=== PATIENT | female | born 1990 | race Caucasian/White ===

== ENCOUNTER 2022-11-23 14:25 | Emergency (ER) | payer OTHER, SELFPAY ==
[2022-11-23 14:53] VITALS: BP 110/79; PULSE 104; RESP 18; TEMP 37.2; O2SAT 99
--- NOTE | 2022-11-23 16:06 | ED.NAVMDI ---
HPI - Nausea/Vomiting/Diarrhea General Time Seen by Provider: 16:06 Date Seen: 11/23/22 Chief complaint: Diarrhea Stated complaint: Blood in stool since 929, Abdominal pain, Nausea Time Seen by Provider: 11/23/22 16:06 Source: patient and RN notes reviewed Mode of arrival: ambulatory Limitations: no limitations History of Present Illness HPI Narrative: Kidney is a very pleasant 31-year-old female with a history of IBS and anxiety/bipolar disorder who comes to the emergency room after experiencing bloody stools and abdominal pain. Patient notes that this has happened to her in the past and she had a colonoscopy in January of 2022 that was normal. She was then diagnosed with IBS/D but states that she has intermittent periods of diarrhea and constipation. She states that she and her mother were going to be traveling this morning and actually arrived at the train station when she felt the need to have a bowel movement. Her initial bowel movement was small but normal but then she started having discomfort in her left upper abdomen and subsequently multiple bloody bowel movements. All very loose stool. She has felt chilled but has not had any fever. She notes nausea but no vomiting. She has had blood in her stool in the past but none recently. She does not take any medications except for Effexor and she has not had a recent illness. Patient denies recent travel, recent antibiotic use or ingestion of uncooked meats. She states that she has requested a referral to GI for ongoing issues with her primary at the [facility]. Movement does not really increase her discomfort. She has not taken anything for discomfort. She is currently menstruating. She states her other medical issue is endometriosis. Associated nausea: Yes Related Data Home Medications Medication Instructions Recorded Confirmed cholecalciferol (vitamin D3) 50 50 mcg PO DAILY 11/23/22 11/23/22 mcg (2,000 unit) tablet (D3 DOTS) cyanocobalamin (B12)-cobamamide diana sublingual 11/23/22 5,000 mcg-100 mcg sublingual lozenge (B12) venlafaxine 37.5 mg 37.5 mg PO DAILY 11/23/22 11/23/22 capsule,extended release 24 hr Allergies Allergy/AdvReac Type Severity Reaction Status Date / Time ciprofloxacin [From Cipro] Allergy Mild Shoulder Verified 11/23/22 17:40 Pain Review of Systems Status of ROS: Reports: 10 or more systems reviewed and unremarkable except as noted in History and below Const: Reports: chills; Denies: fever Eyes: Denies: change in vision ENMT: Denies: throat pain, throat swelling or difficulty swallowing Cardio: Denies: chest pain or shortness of breath with exertion Resp: Denies: shortness of breath or cough GI: Reports: abdominal pain, nausea, diarrhea and blood in stool; Denies: vomiting or difficulty swallowing : Denies: painful urination Musculo: Denies: back pain Integ/Breast: Denies: rash Neuro: Denies: numbness in extremities Allergy/Immuno: Denies: throat swelling PFSH PFSH Social History Smoking Status: Never smoker Do you use any of these nicotine containing products: None Second hand tobacco smoke exposure: No How often do you have a drink containing alcohol: never How often do you have six or more drinks on one occasion: Never AUDIT-C Alcohol total score: 0 Non-prescribed substance use: denies use service: No Exam Narrative: Exam Narrative: Patient is alert and oriented. Very talkative and articulate. Eyes are clear as is oral cavity. Neck is supple. Heart with regular rate and rhythm. Lungs are clear in all lung delacruz. Abdomen shows tenderness at the left splenic flexure. No bulging. Abdomen is soft. No rebound tenderness. Lower extremities without edema. Const: Vital Signs, click to edit/add: Vital Signs - 24 hr 11/23/22 14:53 Temperature 99 F Pulse Rate [Right Pulse Oximeter] 104 H Respiratory Rate 18 Blood Pressure [Ri ght Upper Arm] 110/79 Pulse Oximetry 99 Oxygen Delivery Me thod Room Air Documenting provider has reviewed patient's vital signs: yes Course Course Hospital Course: At this time patient describes previous episodes of blood in stool that would normally resolved after 1-1-1/2 days. This time however her abdominal pain is much worse and while not vomiting she is very nauseated. An IV will be placed with labs to be drawn including a CBC, comprehensive panel, CRP, abdominal CT. Will also give patient 1 L normal saline, Toradol 15 mg IV, Zofran 4 mg IV. Vital Signs Vital signs: Initial Vital Signs Temperature 99 F 11/23/22 14:53 Temperature Source Temporal Artery Scan 11/23/22 14:53 Pulse Rate 104 H 11/23/22 14:53 Pulse Rhythm 11/23/22 14:53 Pulse Strength 3+ Normal 11/23/22 14:53 Respiratory Rate 18 11/23/22 14:53 Blood Pressure 110/79 11/23/22 14:53 Blood Pressure Mean 89 11/23/22 14:53 Blood Pressure Position Sitting 11/23/22 14:53 Pulse Oximetry 99 11/23/22 14:53 Oxygen Delivery Method 11/23/22 14:53 Vital Signs Temperature 99 F 11/23/22 14:53 Pulse Rate 104 H 11/23/22 14:53 Respiratory Rate 18 11/23/22 14:53 Blood Pressure 110/79 11/23/22 14:53 Pulse Oximetry 99 11/23/22 14:53 Oxygen Delivery Method 11/23/22 14:53 Temperature 99 F 11/23/22 14:53 Pulse Rate 104 H 11/23/22 14:53 Respiratory Rate 18 11/23/22 14:53 Blood Pressure 110/79 11/23/22 14:53 Pulse Oximetry 99 11/23/22 14:53 Oxygen Delivery Method 11/23/22 14:53 MDM - Nausea/Vomiting/Diarrhea MDM Narrative Medical decision making narrative: 1. Colitis-suspect Crohn's disease. Unfortunately patient CT does show thickened bowel wall and thickening of the terminal ileum a pattern suspicious for Crohn's. At this time I do speak with surgical technologist Dr. Deleon. It is suggested that we start patient on steroids which will be 40 mg prednisone daily for 7 days. Following this will also place patient on antibiotic. Cipro is the drug of choice in this situation but patient states that she has had shoulder pain in the past. She has never experienced any ankle pain. However, up-to-date does describe Zithromax given 500 mg for 3 days as an appropriate alternative. 2. Abdominal pain-patient will receive Toradol here in the emergency room. She may have additional dose of ibuprofen at home but thereafter will use Tylenol as she will also be on prednisone. No history of gastritis or upper GI bleed in the past. Did offer patient stronger medication such as a narcotic but she is adamant that she would not want to take that. Ironically without having been given Toradol she is actually feeling better after her CT. Nursing had been pulled away for another patient and therefore kidney did not receive the medications that had been ordered. She is receiving those now along with a dose of Zofran 4 mg IV. 3. Disposition-patient will be discharged home. She is to follow up with her primary in order to have a referral to Dr. Stevens. In addition, Dr. Deleon will speak with him this week so we have for further direction on treatments and follow-up. Dr. Deleon notes that she would be able to fit patient in for colonoscopy per Dr. Stevens's approval. If patient has worsening symptoms such as the onset of high fever, vomiting, increasing abdominal pain she will return to the emergency room. Medical Records Attestation: I reviewed the patient's medical records. Lab Data Attestation: I reviewed the patient's lab results. Labs: Lab Results 11/23/22 11/23/22 Range/Units 17:00 17:00 WBC 14.00 H (4.50-11.00) K/uL RBC 4.39 (4.00-5.20) m/uL Hgb 14.1 (12.0-16.0) gm/dL Hct 40.1 (33.0-51.0) % MCV 91 (80-100) fL MCH 32 (26-34) pg MCHC 35 (32-36) gm/dL RDW Coeff of Ysabel 11.8 (11.5-15.5) % Plt Count 243 (140-440) K/uL Neut % (Auto) 77.5 H (42.0-72.0) % Lymph % (Auto) 15.3 L (20-44) % Wharton % (Auto) 7.0 (0.0-11.0) % Eos % (Auto) 0.0 (0.0-7.0) % Baso % (Auto) 0.1 (0.0-3.0) % Neut # (Auto) 10.90 H (1.7-7.0) K/uL Lymph # (Auto) 2.10 (0.90-2.90) K/uL Wharton # (Auto) 1.00 H (0.00-0.90) K/UL Eos # (Auto) 0.00 (0.00-0.50) K/uL Baso # (Auto) 0.00 (0.00-0.30) K/uL Sodium 140 (135-149) mmol/L Potassium 4.3 (3.6-5.1) mmol/L Chloride 104 (96-114) mmol/L Carbon Dioxide 27 (20-32) mmol/L BUN 9 (5-24) mg/dL Creatinine 0.6 (0.5-1.5) mg/dL Estimated GFR 122 ml/min Glucose 99 (60-115) mg/dL Calcium 9.8 (8.4-10.6) mg/dL Total Bilirubin 1.3 (0.1-1.5) mg/dL AST 21 (12-35) U/L ALT 15 (4-35) U/L Alkaline Phosphatase 68 (40-150) U/L C-Reactive Protein 0.9 (0.5-1.0) mg/dL Total Protein 7.7 (6.0-8.3) g/dL Albumin 4.6 (3.3-5.0) g/dL Imaging Data CT scan - abdomen: Attestation: I have reviewed the pertinent imaging results. My impression: Bowel wall edema noted. Radiologist's impression: Liver: No suspicious focal hepatic lesion. Gallbladder and bile ducts: Unremarkable. Pancreas: Unremarkable. Spleen: Unremarkable. Adrenal glands: Unremarkable. Kidneys: Kidneys enhance symmetrically, without hydronephrosis. Retroperitoneum: No lymphadenopathy. Bowel and mesentery: There is colonic wall edema with mild hyperemia of the pericolonic vasculature involving the transverse, descending, and rectosigmoid colon, distribution of which is similar to prior study in 2019. Ascending colon is normal. Appendix is normal. There is also mild wall thickening/edema of the terminal ileum, with prominence of the associated mesenteric vasculature. No significant ascites. No pneumoperitoneum. Bladder: Unremarkable for degree of distension. Reproductive organs: Lobulated uterus, may reflect presence of uterine fibroids. No abnormal adnexal mass. Pelvic lymph nodes: No lymphadenopathy. Vessels: Unremarkable. Abdominal wall: No acute abdominal wall abnormality. Bones: No suspicious/aggressive focal osseous lesion. IMPRESSION: Colonic wall edema involving the transverse, descending, and rectosigmoid colon, with associated hyperemia of the pericolonic vasculature. Distribution is similar to prior study. Additionally, there is mild wall thickening/edema of the terminal ileum with prominence of the associated mesenteric vasculature. Constellation of findings is compatible with enteritis/colitis, distribution raises concern for Crohn`s disease. Discharge Plan Discharge Prescriptions: No Action venlafaxine 37.5 mg capsule,extended release 24hr 37.5 mg PO DAILY Label Comments: TAKE 1 CAPSULE BY MOUTH EVERY DAY WITH FOOD cholecalciferol (vitamin D3) [D3 DOTS] 50 mcg (2,000 unit) tablet 50 mcg PO DAILY B12 5,000-100 mcg lozenge sublingual Follow Up/Referrals: Krystyna Phipps DO [Primary Care Provider] -
--- NOTE | 2022-11-23 16:42 | CRLHL7_ITS ---
For Patients: As a result of the Century Cures Act, medical imaging exams and procedure reports are released immediately into your electronic medical record. You may view this report before your referring provider. If you have questions, please contact your health care provider. INDICATION: Abdominal pain. Bloody stool. TECHNIQUE: CT abdomen and pelvis acquired with 64 mL Isovue 370 contrast. COMPARISON: CT abdomen/pelvis dated 07/09/2019. FINDINGS: Lower chest: No focal consolidation. Liver: No suspicious focal hepatic lesion. Gallbladder and bile ducts: Unremarkable. Pancreas: Unremarkable. Spleen: Unremarkable. Adrenal glands: Unremarkable. Kidneys: Kidneys enhance symmetrically, without hydronephrosis. Retroperitoneum: No lymphadenopathy. Bowel and mesentery: There is colonic wall edema with mild hyperemia of the pericolonic vasculature involving the transverse, descending, and rectosigmoid colon, distribution of which is similar to prior study in 2019. Ascending colon is normal. Appendix is normal. There is also mild wall thickening/edema of the terminal ileum, with prominence of the associated mesenteric vasculature. No significant ascites. No pneumoperitoneum. Bladder: Unremarkable for degree of distension. Reproductive organs: Lobulated uterus, may reflect presence of uterine fibroids. No abnormal adnexal mass. Pelvic lymph nodes: No lymphadenopathy. Vessels: Unremarkable. Abdominal wall: No acute abdominal wall abnormality. Bones: No suspicious/aggressive focal osseous lesion. IMPRESSION: Colonic wall edema involving the transverse, descending, and rectosigmoid colon, with associated hyperemia of the pericolonic vasculature. Distribution is similar to prior study. Additionally, there is mild wall thickening/edema of the terminal ileum with prominence of the associated mesenteric vasculature. Constellation of findings is compatible with enteritis/colitis, distribution raises concern for Crohn`s disease. Please note that all CT scans at this facility use dose modulation, iterative reconstruction, and/or weight-based dosing when appropriate to reduce radiation dose to as low as reasonably achievable. Dictated by Estefany Potts MD @ 11/23/2022 6:10:27 PM (Electronically Signed)
[2022-11-23 17:18] LABS: Basophils Percent Auto 0.1 % (0.0-3.0); Hematocrit 40.1 % (33.0-51.0); Hemoglobin* 14.1 gm/dL (12.0-16.0); Immature Granulocytes Pct Auto 0.1 %; Lymphocytes Percent Auto 15.3 % (20-44); Mean Corpuscular HGB Conc 35 gm/dL (32-36); Mean Corpuscular Hemoglobin 32 pg (26-34); Mean Corpuscular Volume 91 fL (80-100); Neutrophils Percent Auto 77.5 % (42.0-72.0); Platelet Count* 243 K/uL (140-440); RDW Coefficient of Variation % 11.8 % (11.5-15.5); Red Blood Count 4.39 m/uL (4.00-5.20)
[2022-11-23 17:22] LABS: Slide Review Reflex No
[2022-11-23 17:30] LABS: Albumin* 4.6 g/dL (3.3-5.0); Chloride* 104 mmol/L (96-114); Sodium* 140 mmol/L (135-149)
[2022-11-23 17:31] LABS: Potassium* 4.3 mmol/L (3.6-5.1)
[2022-11-23 17:33] LABS: Alkaline Phosphatase* 68 U/L (40-150); Aspartate Amino Transferase* 21 U/L (12-35); Bilirubin Total* 1.3 mg/dL (0.1-1.5); Carbon Dioxide* 27 mmol/L (20-32); Creatinine* 0.6 mg/dL (0.5-1.5); Estimated Glomerular Filt Rate 122 ml/min
[2022-11-23 17:34] LABS: Alanine Aminotransferase* 15 U/L (4-35); Blood Urea Nitrogen* 9 mg/dL (5-24); Calcium* 9.8 mg/dL (8.4-10.6); Glucose* 99 mg/dL (60-115); Total Protein* 7.7 g/dL (6.0-8.3)
[2022-11-23 17:36] LABS: C Reactive Protein* 0.9 mg/dL (0.5-1.0)
[2022-11-23] MEDS: 0.9 % SODIUM CHLORIDE 1000 ml 1,000 ML IV (19:07)
[2022-11-23] MEDS: KETOROLAC 15 MG/ML inj IVP (19:07)
[2022-11-23] MEDS: ONDANSETRON 2 MG/ML inj 4 MG IVP (19:08)
[2022-11-23 19:39] VITALS: BP 102/68; PULSE 69; RESP 18
--- NOTE | 2022-11-25 13:07 | ED.NURSE ---
received call from patient reporting nausea. Dr garcia rx'd zofran 4m ODT q6 x10 tablets.
== END 2022-11-23 19:40 | disposition home or self-care (01) ==
PROVIDERS: Emergency Provider Family Medicine; PCP Family Medicine
DX: K52.9 Noninfective gastroenteritis and colitis, unspecified (principal)
CPT/HCPCS: 36415; 74177; 80053; 85025; 86140; 87045; 87046; 87427; 96374; 96375; 99284; J1885; J2405; J7030; Q9967

== ENCOUNTER 2023-03-08 14:40 | Outpatient (CLI) | payer OTHER, SELFPAY | END 2023-03-08 14:41 | disposition home or self-care (01) | LOC: NFLDREF 03-12 15:59 | PROVIDERS: PCP Family Medicine; Referring Provider Family Medicine; Visit Provider Obstetrics & Gynecology | DX: N92.0 Excessive and frequent menstruation with regular cycle (principal) | CPT/HCPCS: 84443 ==

== ENCOUNTER 2023-05-31 17:28 | Inpatient (IN) | payer OTHER, SELFPAY ==
[2023-05-30] VITALS (24 sets, daily range): BP systolic 92–110; BP diastolic 47–67; PULSE 71–102; RESP 12–16; TEMP 36.1–37.2; O2SAT 97–100; BMI 21.7
[2023-05-30 08:13] LABS: Ur HCG Qualitative* Negative (Negative)
[2023-05-30 08:23] LABS: Hemoglobin* 13.3 gm/dL (12.0-16.0)
[2023-05-30] MEDS: LACTATED RINGERS 1000 ML 1,000 ML 100 ML IV ×3 (08:28→13:25)
[2023-05-30 08:30] LABS: Creatinine* 0.6 mg/dL (0.5-1.5); Est. Creatinine Clearance* 110.32; Estimated Glomerular Filt Rate 121 ml/min
[2023-05-30] MEDS: CEFAZOLIN 2 GM INJ IVP (09:37)
--- NOTE | 2023-05-30 10:01 | P.NB_ITS ---
Nerve Block Nerve Block Date Seen: 05/30/23 Type of block requested by surgeon for post-operative analgesia: TAP Side: bilateral Time out performed: Yes Verification of patient name: Yes Verification of date of : Yes Site marking: site marked Name of person performing procedure: Tyson Continuous monitoring Was continuous monitoring of O2 sat, B/P, lunchroom monitor, recorded every 15 minutes?: Yes Procedure Checklist: sterile prep, needles and gloves Ultrasound guided. Images saved: Yes Medications given in 5ml increments after negative aspiration: Marcaine %: 0.25 mL: 30 Needle gauge: 20 and Exparel mL: 10 Patient tolerated procedure well: Yes Additional comments: Needle noted adjacent to nerve Block Charges Block Charge (with Pro Fee): TAP Bilateral Use of Ultrasound Machine for Block: Yes- US Guidance/pain block
--- NOTE | 2023-05-30 10:01 | W.ANESCHARGE ---
Anesthesia Charges Start Date/Time Anesthesia Start Date: 05/30/23 Anesthesia Start Time: 09:27 Stop Date/Time Anesthesia Stop Date: 05/30/23 Anesthesia Stop Time: 14:19
--- NOTE | 2023-05-30 12:36 | SUR.OPER ---
This caption writer called the patient's mother (Bre) to give an update on the procedure. Bre acknowledged the update and thanked this caption writer for the call.
--- NOTE | 2023-05-30 14:26 | W.ANESCHARGE ---
Anesthesia Charges Start Date/Time Anesthesia Start Date: 05/30/23 Anesthesia Start Time: 09:27 Stop Date/Time Anesthesia Stop Date: 05/30/23 Anesthesia Stop Time: 14:19
--- NOTE | 2023-05-30 14:32 | P.GYNPRC_ITS ---
Procedure Note Date of procedure: 05/30/23 Pre-op diagnosis: Menorrhagia, dysmenorrhea Post-op diagnosis: other (Menorrhagia, dysmenorrhea, endometriosis with obliterated cul-de-sac, corpus luteum cyst of right ovary) Procedure: Total laparoscopic hysterectomy with bilateral salpingectomy, right ovarian cystectomy, extensive lysis of adhesions, cystoscopy Anesthesia: GETA Complications: None Intraoperative consult by Dr. anthony Wray MD, general surgery, for assistance in mobilization of the rectum away from the vaginal cuff Surgeon: Tatum Gomez MD Certified Adaptive Physical Educator: Mellisa Dominguez Estimated blood loss (mL): 75 IV fluids (mL): 2,200 Pathology: specimen obtained, sent to pathology Condition: stable Disposition: PACU Findings: 1. Upon pelvic exam under anesthesia, the cervix and vagina were normal in appearance. Vagina of small caliber. Uterus was mobile and anteverted, of normal size and texture. There were no palpable adnexal masses. 2. Upon laparoscopy, survey of the upper abdomen revealed a normal appearance to the inferior edge of the liver, gallbladder and stomach. Bowels were grossly normal appearance, as was the appendix. Survey of the pelvis revealed normal appearance to the uterus. There was obliteration of the cul-de-sac with rectum adherent to the posterior vaginal wall near the vaginal cough. There was some filmy adhesions noted between the left tube and ovary. The left round ligament was nodular and thick at this site that it was transected, likely secondary to endometriosis. Right fallopian tube was normal in appearance. The left ovary was normal appearance. Right ovary exhibited a corpus luteum cyst and was adherent to the pelvic sidewall along its proximal portions. The bladder reflection was normal in appearance. 3. Upon cystoscopy, bilateral ureteral jets were noted and there was no noted injury to the bladder mucosa. Procedure Description: Patient was taken to the operating room with IV running. She received cefazolin in preoperative prophylaxis. She was positioned in dorsal lithotomy position with her legs fully supported in Yellofin stirrups. General anesthesia was administered. She was prepped and draped in the usual sterile fashion. Pelvic exam under anesthesia was performed for the above-noted findings. Speculum was inserted. Cervix visualized and grasped along its anterior lip with a single-tooth tenaculum. Cervix was dilated with Hegar dilators to accommodate the VCare uterine manipulator. A small-sized colpotomizer cup was selected. The tip of the uterine manipulator was inserted through the cervix into the uterine cavity and the balloon was inflated. The speculum was removed. The colpotomy cup was advanced, surrounding the cervix, and the proximal occluder was moved up along the shaft of the VCare and fixed in place. Malone catheter was placed. Patient's legs were then placed in neutral position. Attention was turned to patient's abdomen. A 5 mm infraumbilical incision was made with a scalpel and carried down to the underlying layer of fascia with the hemostat. 5 mm camera was placed within the 5 mm Fios Kii trocar, and advanced under direct visualization through the anterior abdominal wall into the peritoneal cavity, while tenting up the anterior abdominal wall. The trocar was removed. The balloon was inflated, holding the port in place. Pneumoperitoneum was achieved. Survey of the abdomen and pelvis revealed the above-noted findings. Three additional port sites were created. The first was in the patient's left lower quadrant, just superomedial to the left ASIS. The second was a hand's breadth superior to and slightly medial to the first. The third was in the patient's right lower quadrant, just superomedial to the right ASIS. An 11 mm incision was made in the left lower quadrant, and a 5 mm incision was made at the other 2 sites, after assuring that large vessels were out of harm's way. A 10 mm Fios Kii port was inserted at the left lower quadrant site, and a 5 mm Fios Kii port at each of the other 2 sites, under direct visualization and without complication. The balloon on each of the ports was inflated, holding each in place. Attention was first turned to the right adnexae. The right ovary was partially adherent to the pelvic sidewall, and the utero-ovarian ligament appeared thickened. This was divided with the Thunderbeat device. The right fallopian tube was divided from the mesosalpinx, proceeding laterally to medially, and the tube was amputated at the right uterine cornua. This is removed through the port site and sent to pathology. The right round ligament was cauterized and transected. Attention was then turned to the left fallopian tube, which was divided from the mesosalpinx, using the Thunderbeat bipolar cautery device, proceeding laterally to medially, and the tube was amputated at the left uterine cornua. The above described filmy adhesions were divided as well. There were areas of the broad ligament that were nodular and thickened adjacent to the left round ligament. This was removed through the port site and sent to pathology. The left round ligament was cauterized and transected with the Thunderbeat device. The utero-ovarian ligament was cauterized and transected. The bladder flap was created on the patient's left side, moving laterally to medially. The left uterine artery was cauterized and transected with the Thunderbeat device. Using the colpotomizer cup as a guide, the peritoneum and underlying stroma was dissected off the anticipated site of colpotomy over the posterior vaginal fornix. Attention was then turned to the right side of the uterus, where the bladder flap was created on the patient's right side, and dissection was carried laterally to medially, meeting the dissection where it had left off from the patient's left side. The right uterine artery was cauterized and transected w ith the Thunderbeat device. The bladder reflection was moved well below the colpotomizer cup anteriorly. Posteriorly, the rectum was advanced along the posterior vaginal wall to a trouble some degree. The right ovary was still partially adherent to the cervix with thickened scar tissue beneath the former location of the right utero- ovarian ligament. The right ovary was grasped and put on traction to expose this area, rupturing a corpus luteum cyst in the process. This was removed and sent to pathology. Hemostasis was achieved with monopolar cautery. Dr. Wray was then called to the room to assist with dissection in the rectovaginal space. Please refer to her note for full detail. In short, the retroperitoneum was opened, delineating the passes of the right ureter. The thickened, nodular right uterosacral ligament was cauterized and transected, allowing the rectum to be moved below the colpotomizer cup posteriorly. The vaginal fornix was then entered anteriorly with the monopolar paddle, using the colpotomizer cup as a guide. This device was moved along the circumference of the colpotomizer cup, until the uterus and cervix were freed from their attachments to the pelvis. The uterus was pulled into the patient's vagina, maintaining the pneumoperitoneum. The vaginal cuff was closed with a series of [id number] sutures of 0 Vicryl. Sutures were placed and tied intraperitoneally. Ports were left in place but all instruments were removed and pneumoperitoneum was released. Patient's legs were placed back in lithotomy position. The uterus was removed from the vagina and was sent to pathology for further analysis. Speculum exam was performed, showing an intact cuff with no obvious active bleeding. The Malone catheter was removed from the bladder, and the cystoscope was assembled with saline inflow, outflow, and light cord in place. The patient was given IV sodium fluorescein prior to the cystoscopy. Cystoscope was advanced through the urethra into the bladder, and survey of the mucosa revealed a normal appearance. The bladder dome was intact. Bilateral ureteral jets were noted. Cystoscope was removed and Malone catheter replaced. Patient's legs were again placed in neutral position. Insufflator was reattached to the port and pneumoperitoneum again achieved. Survey of the pelvis revealed hemostasis. The 11 mm Fios Kii port in the left lower quadrant was removed after balloon on the port was deflated. The Akash-Yadira laparoscopic closure device was inserted through this port. With the help of this device, the fascia was closed with a single suture of 0-Vicryl. Procedure was deemed complete. The balloons of all remaining port sites were deflated, and all ports were removed after pneumoperitoneum was released. The skin of each port site was closed in a subcuticular fashion with 4 0 Monocryl. Surgical glue was applied above this. Patient tolerated procedure well and was taken to recovery area in stable cond ition.
--- NOTE | 2023-05-30 14:33 | PM.GSPRC ---
Operative Note Date of procedure: 05/30/23 Type of Procedure: 1. Intraoperative consult for assistance of mobilization of the rectum from the uterus. Indications: Patient was undergoing hysterectomy. Severe endometriosis was found involving the posterior uterus adjacent to the rectum. I was asked to assist with mobilization of the posterior uterine wall of the rectum. Procedure Description: When the operating room was entered, patient was in the lithotomy position. All laparoscopic ports were already placed. Intra-abdominally uterine dissection was already completed and uterus was retracted towards the anterior abdominal wall. The rectum was identified and anterior peritoneal reflection near the posterior uterine wall was firm to palpation. Peritoneum just to the left of this firmness was incised with Harmonic scalpel. This peritoneal dissection was carried towards the right side of the pelvis. Severe fibrosis and inflammation was noted were the posterior vaginal cough/uterus was adjacent to the rectum. This dissection was done bluntly and with the Harmonic scalpel staying close to the uterus and away from the rectum. On the right side uterine vascular supply was already divided. However, there was remnant of the broad ligament or inflammatory tissue that was attached to the uterus. It was difficult to tell if the right ureter was pulled into this firm inflammatory tissue. We elected to trace the entire course of the right ureter into the pelvis. The right ureter was identified near the pelvic brim on the right side. Peritoneum slightly anterior to the right ureter was incised with the Harmonic scalpel. The peritoneum overlying the right ureter was then dissected bluntly and divided with Harmonic scalpel until the course of the right ureter was visualized into the pelvis. Extra caution was taken to avoid injury to the ureter and avoid excessive dissection near the right ureter. The right ureter was diving away from our fibrotic area adjacent to the uterus. This fibrotic tissue was then divided on the right side and that allowed for further mobilization of the uterus and vaginal cuff. At this time enough space was dissected for vaginal cuff closure, and Dr. Dominguez and Dr. Gomez continued with their portion of the procedure. At this time I exited the operating room. Cystoscopy at the end of the procedure did not show any blood in the urine. Anesthesia: GETA Surgeon: Kalyani Wray MD Estimated blood loss (mL): 5 Condition: stable
[2023-05-30] MEDS: ONDANSETRON 2 MG/ML inj 4 MG IVP (14:34)
[2023-05-30] MEDS: HYDROmorphone 0.5 mg/0.5 ml inj IVP ×4 (14:36→20:46)
[2023-05-30] MEDS: fentaNYL 100 MCG/2 ML inj 50 MCG IVP (14:46)
[2023-05-30] MEDS: METOCLOPRAMIDE HCL 5 MG/ML INJ 10 MG IVP (14:48)
--- NOTE | 2023-05-30 15:19 | PC.NURSE ---
Malone placed by Dr. Gomez in OR at start of case.
[2023-05-30] MEDS: CARBOXYMETHYLCELLULOSE (REFRESH PLUS) TEARS 1 DROP EYE-BOTH ×2 (17:09→20:01)
[2023-05-30] MEDS: PROMETHAZINE 25 MG/ML INJ 12.5 MG IV (17:22)
--- NOTE | 2023-05-30 19:28 | PC.NURSE ---
shift note: pt returned to rm via bed @ 1515 from pacu. pt a&o x3. lap site x4 to abd c/d/i. martin pad with scant blood. dhaliwal patent with bright yellow clr urine. BS hypo x4. Pt medicated with dilaudid 0.5mg for RUQ pain with relief. ice cristo applied to abd. Pt had nausea and was medicated with Phenergan per d.o 12.5mg with relief. pt BP decreased after antimedic. Pt head lowered. BP returned to normal within 1 hr after med. IV patent. post op protocol in place. family at bedside
[2023-05-30] MEDS: KETOROLAC 30 MG/ML inj IVP (19:49)
[2023-05-30] MEDS: LACTATED RINGERS 1000 ML 1,000 ML 125 ML IV (20:48)
[2023-05-31] VITALS (7 sets, daily range): BP systolic 87–106; BP diastolic 44–61; PULSE 69–81; RESP 16; TEMP 36.4–37.2; O2SAT 97–100
[2023-05-31] MEDS: KETOROLAC 30 MG/ML inj IVP (03:11)
[2023-05-31] MEDS: 0.9 % SODIUM CHLORIDE 500 ML 500 ML 250 ML IV (03:12)
[2023-05-31] MEDS: OXYCODONE 5 MG TABLET PO ×5 (04:03→20:44)
[2023-05-31 04:30] LABS: Hemoglobin* 11.9 gm/dL (12.0-16.0)
[2023-05-31 04:54] LABS: Creatinine* 0.6 mg/dL (0.5-1.5); Est. Creatinine Clearance* 110.32; Estimated Glomerular Filt Rate 121 ml/min
[2023-05-31] MEDS: IBUPROFEN 600 MG TABLET PO ×4 (06:27→23:35)
[2023-05-31] MEDS: VENLAFAXINE HCL ER 37.5 MG CAPSULE PO (07:49)
--- NOTE | 2023-05-31 11:43 | NUTR.NU ---
Nutrition screen completed related to skin risk. Pt s/p total laparoscopic hysterectomy with bilateral salpingectomy, right ovarian cystectomy, extensive lysis of adhesions, cystoscopy. No wounds documented. BMI WNL. Pt s/p surgery yesterday. Pt hasn't had oppportunity for appetite to return and determine if pt appetite decreased. No risk at this time. Evelyn continue to monitor for nutrition needs.
[2023-05-31] MEDS: ACETAMINOPHEN 325 MG TABLET 650 MG PO ×2 (12:16→20:45)
--- NOTE | 2023-05-31 17:23 | P.GYNPN_ITS ---
LEAD ELECTRICAL ENGINEER - A/P Assessment and plan (1) S/P laparoscopic hysterectomy: Status: Acute Assessment and Plan: Inadequate pain control on combination of IV Toradol and oral oxycodone. Increase oxycodone dose to 10 mg every 4 hours. Urinary retention. Malone catheter to be replaced. She has not yet ambulated and has no bowel sounds. Given this combination of factors, including urinary retention and inadequate pain control, I will change her to inpatient status. Anticipate discharge tomorrow. (2) Endometriosis: Status: Acute Postoperative Procedures: Procedures Operation Date: 05/30/23 08:40 Actual Procedure Side Surgeon p Total Laparoscopic Hysterectomy, Bilateral Salpingectomy, extensive lysis of adhesions, right ovarian cystectomy, Cystoscopy Bilateral Tatum Gomez MD Time Spent With Patient Time: Total time spent is greater than 50% in coordination of care (as documented) at patient's floor/unit and/or counseling patient: Time with patient: less than 15 minutes LEAD ELECTRICAL ENGINEER- PN:Subj Post-Op Subjective Time Seen by Provider: 08:15 Date Seen: 05/31/23 Post Operative Details: Post-operative day number 1: status post total laparoscopic hysterectomy with bilateral salpingectomy, right ovarian cystectomy, cystoscopy Amira failed her voiding trial 2 hours ago. Malone catheter has not been replaced. She has increased in her pelvis. It is currently suboptimally managed with oxycodone and IV Toradol. She has not yet ambulated. She is tolerating regular diet, but has not passed flatus. She denies any heavy vaginal bleeding. LEAD ELECTRICAL ENGINEER-PN: Obj Exam Physical Exam: Vital signs: Temp Pulse Resp BP Pulse Ox O2 Del Method 99 F 70 16 97/59 L 100 Room Air 05/31/23 11:00 05/31/23 11:00 05/31/23 11:00 05/31/23 11:00 05/31/23 11:05/31/23 11:00 Narrative: General: Pleasant, no acute distress Heart: Regular rate and rhythm, no murmur or gallop Lungs: Clear to auscultation bilaterally Abdomen: Normoactive bowel sounds in all 4 quadrants, voluntary guarding, no rebound, no distension laparoscopic incisions with scant bruising in the right and left lower quadrant ports, intact Lower extremities: SCDs in place Urinary Catheter Management: Urethral: Cath placed during this visit: yes Urethral indwelling: Yes Reason for continuing: acute urinary retention Insertion date: 05/31/23 Insertion time: 14:57 LEAD ELECTRICAL ENGINEER - PN: Obj Data Labs Labs: Laboratory Results - last 24 hr 05/31/23 04:19 Hgb 11.9 L Creatinine 0.6 Estimated Creat Clear 110.32 Estimated GFR 121
--- NOTE | 2023-05-31 19:59 | PC.NURSE ---
shift Note: Pt unable to empty bladder independently after bladder backfill and dhaliwal removal. She did have a 300cc void but a bladder scan showed 338cc residual. New dhaliwal was placed and 500cc urine drained immediately. Dhaliwal is patent and draining pale yellow urine. BP's soft, 90's/60's. Pt has been asymptomatic and has ambulated x2 around the unit. Pain initially 5/10, Oxy order increased and pt also alternating scheduled Ibuprofen and Tylenol as well as ice. She verbalizes she is much more comfortable. 4 lap sites C,D,&I, some erythema noted around LLQ incision.
[2023-05-31] MEDS: SIMETHICONE 80 MG TAB.CHEW 160 MG PO (23:35)
[2023-06-01] MEDS: ACETAMINOPHEN 325 MG TABLET 650 MG PO ×2 (02:51→09:07)
[2023-06-01 03:00] VITALS: BP 116/66; PULSE 69; RESP 16; TEMP 36.6; O2SAT 100
[2023-06-01 05:18] LABS: Hemoglobin* 10.7 gm/dL (12.0-16.0)
[2023-06-01] MEDS: IBUPROFEN 600 MG TABLET PO ×2 (06:06→11:44)
[2023-06-01 07:00] VITALS: BP 116/61; PULSE 63; RESP 16; TEMP 36.9; O2SAT 100
--- NOTE | 2023-06-01 07:07 | PC.NURSE ---
[id number] Pt slept well during the night, pain managed with prn and scheduled pain meds. Malone pulled this morning and back filled 300cc. pt urinated 400cc immediately after filling bladder. no N/V, passing gas. ice to site.
[2023-06-01] MEDS: VENLAFAXINE HCL ER 37.5 MG CAPSULE PO (07:46)
[2023-06-01] MEDS: polyethylene glycoL 3350 17 GM PACK PO (07:46)
[2023-06-01] MEDS: OXYCODONE 5 MG TABLET PO (09:07)
--- NOTE | 2023-06-01 09:55 | P.DS_ITS ---
DS: Providers Provider Time Seen by Provider: 09:00 Date Seen: 06/01/23 Date of admission: 05/31/23 17:28 Primary care physician: Krystyna Phipps DO Admitting Clinician: Tatum Gomez MD Attending Physician on discharge: Tatum Gomez MD Date of Discharge: 06/01/23 DS: Diagnosis Discharge Diagnosis (1) Endometriosis: Status: Acute (2) S/P laparoscopic hysterectomy: Status: Acute CREDIT RELATIONSHIP MANAGER-Discharge Summary Hospital Course Hospital Course Narrative: Patient is a 32 year old admitted on 05/30/2023 for scheduled Total laparoscopic hysterectomy with bilateral salpingectomy, right ovarian cystectomy, extensive lysis of adhesions, cystoscopy. Indication for surgery: Dysmenorrhea, suspected endometriosis. Intraoperative findings were notable for: 1. Upon pelvic exam under anesthesia, the cervix and vagina were normal in appearance. Vagina of small caliber. Uterus was mobile and anteverted, of normal size and texture. There were no palpable adnexal masses. 2. Upon laparoscopy, survey of the upper abdomen revealed a normal appearance to the inferior edge of the liver, gallbladder and stomach. Bowels were grossly normal appearance, as was the appendix. Survey of the pelvis revealed normal appearance to the uterus. There was obliteration of the cul-de-sac with rectum adherent to the posterior vaginal wall near the vaginal cough. There was some filmy adhesions noted between the left tube and ovary. The left round ligament was nodular and thick at this site that it was transected, likely secondary to endometriosis. Right fallopian tube was normal in appearance. The left ovary was normal appearance. Right ovary exhibited a corpus luteum cyst and was adherent to the pelvic sidewall along its proximal portions. The bladder reflection was normal in appearance. 3. Upon cystoscopy, bilateral ureteral jets were noted and there was no noted injury to the bladder mucosa. Overall, she had an uncomplicated surgery. Postoperative course was significant for urinary retention which has resolved today (POD#2) Vitals have been stable. She has remained afebrile. Today, on postoperative day 2, she reports the pain is well controlled. She has been able to ambulate Without difficulty. She is tolerating regular diet. She is passing flatus and had a bowel movement. Dhaliwal catheter has been removed, and she is voiding without difficulty. Time Spent with Patient Time attestation: Total time spent providing and/or coordinating discharge services: CREDIT RELATIONSHIP MANAGER - Exam Physical Exam: Vital signs: Temp Pulse Resp BP Pulse Ox O2 Del Method 98.4 F 63 16 116/61 100 Room Air 06/01/23 07:00 06/01/23 07:00 06/01/23 07:00 06/01/23 07:00 06/01/23 07:00 06/01/23 07:00 Narrative: Physical exam: General: Pleasant, No acute distress Psych: Alert and oriented x3, full affect Heart: Regular rate and rhythm, no murmur rub or gallop Lungs: Clear to auscultation bilaterally Abdomen: Normoactive bowel sounds, soft, no tenderness, rebound, or guarding, no masses. Incision: 4 abdominal incisions, appropriately tender to palpation. Clean, dry, and intact Lower extremities: No edema or erythema. SCDs and TEDs on Pelvic exam: No blood noted on vaginal pad CREDIT RELATIONSHIP MANAGER - DS: Data Data Completed and Pending Labs on day of discharge: Labs from last 24 hours 06/01/23 05:05 Hgb 10.7 L Procedures Procedures: Procedures Operation Date: 05/30/23 08:40 Actual Procedure Side Surgeon p Total Laparoscopic Hysterectomy, Bilateral Salpingectomy, extensive lysis of a dhesions, right ovarian cystectomy, Cystoscopy Bilateral Tatum Gomez MD Discharge Plan Discharge Disposition: Home, Self-Care Date of Admission: 05/31/23 17:28 Attending Provider on Discharge: Mellisa Dominguez MD Primary Care Provider: Krystyna Phipps Condition: Stable Anticipated Discharge Date/Time: 06/01/23 09:47 Discharge Medications: New acetaminophen 325 mg Tablet 650 mg PO Q6H PRN30 Days Qty: 90 0RF ibuprofen 600 mg Tablet 600 mg PO Q6H 30 Days Qty: 120 0RF simethicone 80 mg Tablet,Chewable 160 mg PO Q4H PRN (Reason: gas) 30 Days Qty: 90 0RF oxycodone 5 mg Tablet 5 mg PO Q4H PRN (Reason: Moderate Pain) 14 Days Qty: 20 0RF Continued psyllium Powder 1 tbsp PO BID Rx Instructions: mix into at least 8 oz of water or juice before administering venlafaxine 37.5 mg capsule,extended release 24hr 37.5 mg PO DAILY Patient Comments: TAKE 1 CAPSULE BY MOUTH EVERY DAY WITH FOOD cholecalciferol (vitamin D3) [D3 DOTS] 50 mcg (2,000 unit) tablet 50 mcg PO DAILY cyanocobalamin (vitamin B-12) 5,000 mcg capsule 5,000 mcg PO DAILY polyethylene glycol 3350 [Miralax] 17 gram/dose powder 17 g PO DAILY PRN Discharge Orders: Discharge Order (Routine); Ordered 06/01/23 Ordered By: Mellisa Dominguez Patient Education: Acetaminophen (By mouth), Ibuprofen (By mouth), Simethicone (By mouth), Oxycodone, Rapid Release (By mouth), Endometriosis (GEN), Laparoscopic Hysterectomy (DC) Additional Instructions: LAPAROSCOPY POSTOPERATIVE INSTRUCTIONS ACTIVITY * No heavy lifting/pushing/pulling for 4-6 weeks. Do not lift anything more than about 15 lbs (such as laundry, groceries, children, pets), vacuum, push heavy doors or grocery carts, etc. You may climb stairs as tolerated. * Do not put anything in the vagina for 6-8 weeks after surgery unless otherwise instructed by your doctor (including tampons, douching, sexual intercourse, etc). * No driving for about 2 weeks after surgery, while you are taking narcotic pain medication, or until you feel that you are ready. Practice checking your blind spot and stepping hard on the brake. * Avoid sitting or lying in bed for more than 2 hours at a time while you are awake to reduce your risk of blood clots. * You may return to work when directed by your physician. Please contact your doctor if you need any return to work letters or medical leave paperwork to be completed. WOUND CARE * You will have 4 small incisions on your abdomen. There will be dissolvable stitches under your skin that do not need to be removed. * Shower daily after surgery. Clean your incision with mild antibacterial soap and water. Pat your incision dry with a clean towel. No tub baths until wound is completely healed. * Wash your hands frequently, especially before touching your incision, changing any dressings, after using the restroom, and before eating. PAIN MANAGEMENT * Take your oral pain medication as needed. You should be taking Ibuprofen 600mg every 6 hours with 650 mg of Tylenol every 6 hours. You can take these together every six hours or alternate them every 3 hours. You should then take the oxycodone as needed if you have breakthrough pain on top of the Tylenol and Ibuprofen. * Some pain medications can cause constipation so you should take a stool softener (i.e. colace/senna) while you are on these medications. * You may also take milk of magnesia or Miralax for constipation. WHAT TO EXPECT AT HOME * Recovery from surgery is generally 2-4 weeks, but sometimes longer for more strenuous activity. It is normal to be very tired during this time. * It is normal to have some drainage or a small amount of vaginal bleeding after surgery which may last up to 6 weeks. * You may go home with a dhaliwal catheter in your bladder. If so, you will need to follow up for a nurse visit in 7-10 days for removal. * You will most likely experience gas pain, abdominal swelling, or shoulder pain for 24-72 hours after surgery. This is from the carbon dioxide gas put into your abdomen to better visualize your organs. A warm shower, heating pad, and/or walking may help. WHEN TO CALL YOUR DOCTOR: * Fever (>100.4?F or 38.0?C) or chills. * Incision problems such as redness, warmth, swelling, or foul-smelling drainage. * Severe nausea or persistent vomiting. * Bright red vaginal bleeding (soaking >1 pad/hour) or foul-smelling vaginal drainage. * Severe pain not relieved with pain medication. * Pain and swelling in your legs, especially if it is only on one side and not the other. * Pain with urination, cloudy urine, or foul-smelling urine. * Or if you have any other problems or questions. CALL 911 OR GO TO THE EMERGENCY ROOM IF YOU HAVE: Any shortness of breath, difficulty breathing, or chest pain. Discharge Diet: Regular Follow Up Appointments: Krystyna Phipps DO [Primary Care Provider] - 06/05/23 1:50 pm ([facility] in [place]) Forms: [employer] Info Instructions
--- NOTE | 2023-06-01 13:08 | PC.NURSE ---
Discharge Note: Pt friendly, cooperative, and ambulating independently throughout her room. VS WNL and LS COA. Afebrile. 4 lap sites to abdomen SPACECRAFT SYSTEMS ENGINEER and well approximated. Pt rating pain 2/10, alternating Ibuprofen with Oxy and Tylenol as well as ice pack to surgical site. Voiding regularly without difficulty, urine is clear and pale yellow. Scant bloody discharge to pad. 1 loose BM this morning, pt stated she thought it was flatus and had a small incontinent episode. She was discharged to home in the care of her mother and friend via wheelchair at 11:45.
--- NOTE | 2023-06-10 20:00 | PC.NURSE ---
Patient called medsurg asking if it is ok with her procedure 05/30 and her post op meds (Tylenol, Ibuprofen, Oxycodone) if it is ok for her to use Pepto Bismol for queasiness she develped after eating dinner. Is having normal BMs. This was ok with Dr. Dominguez, called patient back and gave her update. No further questions.
== END 2023-06-01 13:12 | disposition home or self-care (01) | DRG 743 ==
LOC: OR 18:01 → MEDSURG 18:01
PROVIDERS: Surgery; Admitting Provider Obstetrics & Gynecology; PCP Family Medicine; Visit Provider Obstetrics & Gynecology
PROC: 0UT94ZZ Resection of Uterus, Percutaneous Endoscopic Approach (ICD-10-PCS; principal; 2023-05-30 08:30)
PROC: 0DNW4ZZ Release Peritoneum, Percutaneous Endoscopic Approach (ICD-10-PCS; 2023-05-30 08:30)
DX: N92.0 Excessive and frequent menstruation with regular cycle (principal); N94.6 Dysmenorrhea, unspecified; N72 Inflammatory disease of cervix uteri; D25.2 Subserosal leiomyoma of uterus; N83.11 Corpus luteum cyst of right ovary; N80.329 Endometriosis of the posterior cul-de-sac, unspecified depth; R33.9 Retention of urine, unspecified; G89.18 Other acute postprocedural pain
CPT/HCPCS: 00840; 36415; 51701; 51798; 64488; 76942; 81025; 82565; 85018; 86850; 86900; 86901; 88305; 88307; A9270; J0330; J0690; J1100; J1170; J1885; J2250; J2371; J2405; J2550; J2704; J2710; J2765; J3010; J3475; J3490; J7120

== ENCOUNTER 2023-09-04 10:20 | Emergency (ER) | payer SELFPAY ==
[2023-09-04 10:56] VITALS: BP 105/70; PULSE 98; RESP 16; TEMP 36.5; O2SAT 81; BMI 22.0
--- NOTE | 2023-09-04 11:07 | ED_ITS ---
HPI - General Adult General Time Seen by Provider: 11:07 Date Seen: 09/04/23 Chief complaint: Back Injury/Pain Stated complaint: back pain, vomiting Time Seen by Provider: 09/04/23 11:02 History of Present Illness HPI narrative: 32 yo F with h/o endometrisosis, total laparoscopic hysterectomy with bilateral salpingectomy, right ovarian cystectomy, extensive lysis of adhesions, and cystoscopy on 05/30/2023, GERD, bipolar, anxiety. She does not really have any history of chronic trouble with her back and no previous back surgeries. She has been experiencing pain in her lower back that is been present off and on for the past couple of weeks. She noticed that it happens just to the left of the midline of her low back in the upper portion, below the ribcage. When it is bad it radiates down to the lower portion of her low back, above the pelvis, but does not radiate down her buttock or leg. She does not have any associated leg symptoms such as numbness, pain, or weakness. No unusual function of bowel or bladder. She does struggle with chronic constipation so uses MiraLax every day. She has not had any unusual urinary symptoms such as dysuria, frequency, urgency, hematuria. She is status post hysterectomy so does not get menstrual cycle. No fever or chills. The pain tends to occur in the morning when she wakes up and gets better after a while. Sometimes she uses ibuprofen for the pain but some days she does not even need anything. Today, however her, her pain was much more severe than the past couple of weeks and last longer. It was also associated with nausea and 1 episode of dry heaves. No other new symptoms today. Her mother has a history of kidney stones and kidney infections so the patient wanted to be checked just to make sure she was not doing with 1 of those problems. At the time she is here in the ER she is no longer having nausea. Pain is tolerable. Related Data Home Medications Medication Instructions Recorded Confirmed cholecalciferol (vitamin D3) 50 50 mcg PO DAILY 11/23/22 07/12/23 mcg (2,000 unit) tablet (D3 DOTS) venlafaxine 37.5 mg 37.5 mg PO DAILY 11/23/22 07/12/23 capsule,extended release 24 hr psyllium 1 tbsp PO BID 03/08/23 07/12/23 cyanocobalamin (vitamin B-12) 5,000 mcg PO DAILY 05/29/23 07/12/23 5,000 mcg capsule polyethylene glycol 3350 17 17 g PO DAILY PRN 05/30/23 07/12/23 gram/dose oral powder (Miralax) Previous Rx's Medication Instructions Recorded acetaminophen 325 mg tablet 650 mg (2 x 325 mg) PO Q6H PRN 30 06/01/23 days #90 tabs ibuprofen 600 mg tablet 600 mg PO Q6H 30 days #120 tabs 06/01/23 Allergies Allergy/AdvReac Type Severity Reaction Status Date / Time ciprofloxacin [From Cipro] Allergy Mild Shoulder Verified 07/12/23 13:59 Pain latex Allergy Unknown Verified 07/12/23 13:59 zinc Allergy Unknown Verified 07/12/23 13:59 metronidazole Allergy Nausea Verified 07/12/23 13:59 simvastatin Allergy myalgia Verified 07/12/23 13:59 PFSH PFSH Medical History (Updated 09/04/23 @ 15:37 by Redd Mcmanus MD) Hematochezia ?K92.1 - Melena (ICD-10) Vaginismus ?N94.2 - Vaginismus (ICD-10) Leiomyoma (2016) ?D21.9 - Benign neoplasm of connective and other soft tissue, unspecified (ICD-10) Surgical History (Updated 06/09/23 @ 00:01 by Claire Villagomez) S/P wisdom tooth extraction ?Z98.818 - Other dental procedure status (ICD-10) Lesion of vulva ?N90.89 - Other specified noninflammatory disorders of vulva and perineum (ICD-10) Family History (Updated 03/08/23 @ 21:49 by Tatum Gomez MD) Mother Breast cancer, Onset Age: 46 High cholesterol Depression Alcohol dependence Aunt Colon cancer Ovarian cancer Thyroid disease Father High cholesterol Maternal Grandfather Prostate cancer Alcohol dependence Family/Other Uterine cancer Other Family history of colon cancer Social History Smoking Status: Never smoker Do you use any of these nicotine containing products: None Second hand tobacco smoke exposure: No How often do you have a drink containing alcohol: never How often do you have six or more drinks on one occasion: Never AUDIT-C Alcohol total score: 0 Non-prescribed substance use: denies use service: No Exam Narrative: Exam Narrative: Constitutional: Appears well-developed and well-nourished. Alert. Conversant. Non toxic. HENT: Head: Atraumatic. Nose: Nose normal. Mouth/Throat: Oral mucosa is clear and moist. no trismus. Pharynx normal. Tonsils symmetric. No tonsillar enlargement, erythema, or exudate. Eyes: Conjunctivae normal. EOM normal. Pupils equal, round, and reactive to light. No scleral icterus. Neck: Normal range of motion. Neck supple. No tracheal deviation present. Cardiovascular: Normal rate, regular rhythm. No gallop. No friction rub. No murmur heard. Symmetric radial artery pulses Pulmonary/Chest: Effort normal. No stridor. No respiratory distress. No wheezes. No rales. No rhonchi . No tenderness. Abdominal: Soft. Bowel sounds normal. No distension. No mass. No tenderness. No rebound. No guarding. Musculoskeletal: She indicates her pain is just to the left of her upper lumbar spine, over the lumbar paraspinous muscles and radiates down to her left lower lumbar paraspinous muscles. No explicit CVA tenderness on either side. No midline step-off. No definite discrete point tenderness. No erythema. No bruising. No rash. No shingles. RUE: Normal range of motion. No tenderness. No deformity LUE: Normal range of motion. No tenderness. No deformity RLE: Normal range of motion. No edema. No tenderness. No deformity LLE: Normal range of motion. No edema. No tenderness. No deformity Neurological: Alert and oriented to person, place, and time. Normal strength. CN II-VII intact. No sensory deficit. GCS eye subscore is 4. GCS verbal subscore is 5. GCS motor subscore is 6. Normal coordination Sensory: Normal light touch sensation bilaterally on the anteromedial thigh (L3), medial malleolus (L4), dorsal first web space (L5), lateral malleolus (S1). Strength: 5/5 strength hip flexors (L3) on the rig ht and left 5/5 strength in the quadriceps (L4) on t he right and left 5/5 strength in the tibialis anterior 5/5 strength in the EHL (L5) on the righ t and left 5/5 strength in the gastrocnemius (S1) o n the right and left 5/5 strength in the hamstring on the rig ht and left Negative straight leg raise bilaterally. Skin: Skin is warm and dry. No rash noted. No pallor. Normal capillary refill. Psychiatric: Normal mood. Normal affect. Const: Vital Signs, click to edit/add: Vital Signs - 24 hr 09/04/23 10:56 Temperature 97.7 F Pulse Rate [Pulse Oximeter] 98 Respiratory Rate 16 Blood Pressure [Ri ght Upper Arm] 105/70 Pulse Oximetry 81 L Oxygen Delivery Me thod Room Air Course Vital Signs Vital signs: Initial Vital Signs Temperature 97.7 F 09/04/23 10:56 Temperature Source Temporal Artery Scan 09/04/23 10:56 Pulse Rate 98 09/04/23 10:56 Respiratory Rate 16 09/04/23 10:56 Blood Pressure 105/70 09/04/23 10:56 Blood Pressure Mean 81 09/04/23 10:56 Blood Pressure Position Supine 09/04/23 10:56 Pulse Oximetry 81 L 09/04/23 10:56 Oxygen Delivery Method Room Air 09/04/23 10:56 Vital Signs Temperature 97.7 F 09/04/23 10:56 Pulse Rate 98 09/04/23 10:56 Respiratory Rate 16 09/04/23 10:56 Blood Pressure 105/70 09/04/23 10:56 Pulse Oximetry 81 L 09/04/23 10:56 Oxygen Delivery Method Room Air 09/04/23 10:56 Temperature 97.7 F 09/04/23 10:56 Pulse Rate 98 09/04/23 10:56 Respiratory Rate 16 09/04/23 10:56 Blood Pressure 105/70 09/04/23 10:56 Pulse Oximetry 81 L 09/04/23 10:56 Oxygen Delivery Method Room Air 09/04/23 10:56 Medical Decision Making MDM Narrative Medical decision making narrative: Pleasant 32-year-old female presenting to the ER today with her mother with concern for intermittent at pain affecting her low back off and on for the past 3 weeks but worse today. A today also associated with nausea. Initial concern was for possible kidney stone, pyelonephritis versus musculoskeletal low back pain. Discussed initial steps of workup. Patient wanted to be minimal if possible. Therefore we started with urinalysis. UA does show hematuria but no evidence for pyuria or infection. She has had a recent hysterectomy so cannot be . Presence of hematuria raise suspicion for kidney stone, prompting further workup with labs and stone protocol CT. Stone protocol CT does not show any evidence for intrarenal or obstructing stones. Also no evidence for perinephric stranding other renal abnormality. Labs reassuring. Surprisingly, stone protocol CT scan shows segments of colitis affecting her transverse colon as well as her rectosigmoid colon. No findings of perforation, abscess, fistula. At this point no surgical emergency. Discussed the finding of colitis with the patient and her mother. She recalls that she has actually had several episodes of this in the past. She had been treated with empiric antibiotics before, without any clear infection. No improvement on previous courses of antibiotics. She has had 3 colonoscopies over the past couple of years without any clear diagnosis of inflammatory bowel disease or amount of autoimmune. She follows with [facility]. She is not currently on any immunosuppressive therapy. She has not had any recent fevers, diarrhea, bloody stool, recent antibiotics, or any other clear symptoms of infectious colitis. Or age and risk factors do not support ischemic colitis. At this point plan of care will be supportive for now. She feels comfortable using ibuprofen for pain at home. I recommended expeditious outpatient follow-up with [facility] for re-evaluation. She may need another colonoscopy or further workup to determine if there is some other occult for cause of colitis going on. She and her mother in agreement. Discussed return precautions. They understand and agree. Lab Data Labs: Lab Results 09/04/23 09/04/23 Range/Units 12:00 13:05 WBC 9.66 (4.50-11.00) K/uL RBC 4.18 (4.00-5.20) m/uL Hgb 13.6 (12.0-16.0) gm/dL Hct 39.7 (33.0-51.0) % MCV 95 (80-100) fL MCH 33 (26-34) pg MCHC 34 (32-36) gm/dL RDW Coeff of [place]sabel 11.6 (11.5-15.5) % Plt Count 239 (140-440) K/uL Neut % (Auto) 72.2 H (42.0-72.0) % Lymph % (Auto) 20.2 (20-44) % [place] % (Auto) 7.3 (0.0-11.0) % Eos % (Auto) 0.0 (0.0-7.0) % Baso % (Auto) 0.1 (0.0-3.0) % Neut # (Auto) 7.00 (1.7-7.0) K/uL Lymph # (Auto) 1.95 (0.90-2.90) K/uL [place] # (Auto) 0.70 (0.00-0.90) K/UL Eos # (Auto) 0.00 (0.00-0.50) K/uL Baso # (Auto) 0.01 (0.00-0.30) K/uL Abs Immat Gran (auto) 0.02 (0.00-0.30) K/uL Imm/Tot Granulo (auto) 0.2 % Sodium 139 (135-149) mmol/L Potassium 4.6 (3.6-5.1) mmol/L Chloride 105 (96-114) mmol/L Carbon Dioxide 25 (20-32) mmol/L Anion Gap 9 (7-15) mEq/L BUN 12 (5-24) mg/dL Creatinine 0.5 (0.5-1.5) mg/dL Estimated Creat Clear 132.38 Estimated GFR 127 ml/min Glucose 92 (60-115) mg/dL Calcium 9.1 (8.4-10.6) mg/dL Urine Color Yellow (Yellow) Urine Appearance Clear (Clear) Urine pH 7.5 (5.0-8.5) Ur Specific [place] 1.020 (1.000-1.030) Urine Protein Negative (Negative) Urine Glucose (UA) Negative (Negative) Urine Ketones Negative (Negative) Urine Blood Trace-intact A (Negative) Urine Nitrite Negative (Negative) Urine Bilirubin Negative (Negative) Urine Urobilinogen 0.2 (0.2-1.0) Ur Leukocyte Esterase Negative (Negative) Urine RBC 5-10 A (0-2) Urine WBC 2-5 (0-5) Ur Squamous Epith Cells None (None-Few) Urine Bacteria Few A (None) Discharge Plan Discharge Clinical Impression: Colitis Patient Disposition: Home, Self-Care Condition: Stable Instructions: Colitis (ED) Additional Instructions: As we discussed, your CT scan today shows that you have a condition called colitis. At this time we do not know the cause for your colitis. Please follow-up with your doctors at [facility] as soon as possible for further workup. If you have worsening symptoms such as high fever, severe abdominal pain, bloody or black stools, weakness, worsening back pain, or any other problems please come back to the ER right away. Prescriptions: No Action psyllium Powder 1 tbsp PO BID Rx Instructions: mix into at least 8 oz of water or juice before administering venlafaxine 37.5 mg capsule,extended release 24hr 37.5 mg PO DAILY Patient Comments: TAKE 1 CAPSULE BY MOUTH EVERY DAY WITH FOOD cholecalciferol (vitamin D3) [D3 DOTS] 50 mcg (2,000 unit) tablet 50 mcg PO DAILY cyanocobalamin (vitamin B-12) 5,000 mcg capsule 5,000 mcg PO DAILY polyethylene glycol 3350 [Miralax] 17 gram/dose powder 17 g PO DAILY PRN acetaminophen 325 mg Tablet 650 mg PO Q6H PRN30 Days Qty: 90 0RF ibuprofen 600 mg Tablet 600 mg PO Q6H 30 Days Qty: 120 0RF Follow Up/Referrals: Krystyna Phipps DO [Primary Care Provider] - Stand Alone Forms: [employer] Info Instructions
[2023-09-04 12:22] LABS: Appearance Urine Clear (Clear); Bilirubin Urine Negative (Negative); Blood Urine Trace-intact (Negative); Color Urine Yellow (Yellow); Glucose Urine Negative (Negative); Ketones Urine Negative (Negative); Leukocyte Esterase Urine Negative (Negative); Nitrite Urine Negative (Negative); Protein Urine Negative (Negative); Urobilinogen Urine 0.2 (0.2-1.0); pH Urine 7.5 (5.0-8.5)
[2023-09-04 12:40] LABS: Bacteria Urine Few
--- NOTE | 2023-09-04 12:49 | CRLHL7_ITS ---
For Patients: As a result of the Century Cures Act, medical imaging exams and procedure reports are released immediately into your electronic medical record. You may view this report before your referring provider. If you have questions, please contact your health care provider. INDICATION: Hematuria, flank pain. TECHNIQUE: CT of the abdomen and pelvis without intravenous contrast. Coronal and sagittal reconstructions. COMPARISON: CT of the abdomen and pelvis 11/23/2022. FINDINGS: The unenhanced liver, gallbladder, spleen, pancreas, and adrenal glands are normal in appearance. No biliary dilation. No hydronephrosis or ureteral dilation. No obstructing urinary calculi identified. The bladder is normal in appearance. Interval hysterectomy. Small follicle right ovary. No small bowel dilation. Moderate amount of stool in the ascending colon. Evaluation is limited without IV contrast, however there appears to be mild wall thickening of the transverse colon and rectosigmoid colon. Subtle fat stranding about the distal sigmoid colon. Negative appendix. No intraperitoneal free air or fluid. No lymphadenopathy The bones are unremarkable. The lung bases are clear. IMPRESSION: 1. No hydronephrosis or obstructing urinary calculi. Bladder is unremarkable. 2. Mild wall thickening of the transverse colon and rectosigmoid colon suggesting a nonspecific colitis, however evaluation is limited without IV contrast. 3. Interval hysterectomy. Please note that all CT scans at this facility use dose modulation, iterative reconstruction, and/or weight-based dosing when appropriate to reduce radiation dose to as low as reasonably achievable. Dictated by Allyn Tabares MD @ 09/04/2023 2:47:32 PM (Electronically Signed)
[2023-09-04 13:15] LABS: Basophils Absolute Auto 0.01 K/uL (0.00-0.30); Basophils Percent Auto 0.1 % (0.0-3.0); Hematocrit 39.7 % (33.0-51.0); Hemoglobin* 13.6 gm/dL (12.0-16.0); Immature Granulocytes Abs Auto 0.02 K/uL (0.00-0.30); Immature Granulocytes Pct Auto 0.2 %; Lymphocytes Absolute Auto 1.95 K/uL (0.90-2.90); Lymphocytes Percent Auto 20.2 % (20-44); Mean Corpuscular HGB Conc 34 gm/dL (32-36); Mean Corpuscular Hemoglobin 33 pg (26-34); Mean Corpuscular Volume 95 fL (80-100); Monocytes Percent Auto 7.3 % (0.0-11.0); Neutrophils Percent Auto 72.2 % (42.0-72.0); Platelet Count* 239 K/uL (140-440); RDW Coefficient of Variation % 11.6 % (11.5-15.5); Red Blood Count 4.18 m/uL (4.00-5.20); White Blood Count* 9.66 K/uL (4.50-11.00)
[2023-09-04 13:16] LABS: Slide Review Reflex No
[2023-09-04 13:26] LABS: Chloride* 105 mmol/L (96-114); Sodium* 139 mmol/L (135-149)
[2023-09-04 13:27] LABS: Potassium* 4.6 mmol/L (3.6-5.1)
[2023-09-04 13:29] LABS: Anion Gap 9 mEq/L (7-15); Blood Urea Nitrogen* 12 mg/dL (5-24); Carbon Dioxide* 25 mmol/L (20-32); Creatinine* 0.5 mg/dL (0.5-1.5); Est. Creatinine Clearance* 132.38; Estimated Glomerular Filt Rate 127 ml/min
[2023-09-04 13:30] LABS: Calcium* 9.1 mg/dL (8.4-10.6); Glucose* 92 mg/dL (60-115)
== END 2023-09-04 15:45 | disposition home or self-care (01) ==
PROVIDERS: Emergency Provider Emergency Medicine; PCP Family Medicine
DX: K52.9 Noninfective gastroenteritis and colitis, unspecified (principal)
CPT/HCPCS: 36415; 74176; 80048; 81001; 85025; 87086; 99283

== ENCOUNTER 2024-02-20 06:55 | Day surgery (SDC) | payer MEDICAID, SELFPAY ==
[2024-02-20] VITALS (12 sets, daily range): BP systolic 103–124; BP diastolic 68–79; PULSE 54–78; RESP 12–18; TEMP 36.1–36.2; O2SAT 98–100; BMI 24.4
--- OUTSIDE RECORDS SUMMARY | 2024-02-20 06:59 | XMS_ITS | Clinical Summary ---
Author Name Unknown Organization [facility] Address [address] [place] [id number] Care Team Providers Care Data Steward Name Role Phone Krystyna Phipps MD Primary Care Provider [phone] Allergies Active Allergy Reactions Criticality Noted Date Comments Ciprofloxacin Muscle Pain (Myalgia) 04/09/2017 Pt called to say that the day after finishing her Cipro course she developed shoulder and elbow aching and wanted it noted in her chart. No Known Allergies 06/08/2004 Medications Medication Sig Dispensed Refills Start Date End Date Status DAILY VITAMIN TABS OR 1 tab daily 0 0 08/22/2004 Active ORTHO TRI-CYCLEN TABS ORIndications:Excessi ve or frequent menstruation 1 tab po as directed 3 pk 3 12/01/2007 Active FLUoxetine (PROZAC) 20 MG capsule Take 20 mg by mouth 03/05/2017 Active dicyclomine (BENTYL) 20 MG tablet Take 1 tablet (20 mg) by mouth 4 times daily as needed (abdominal pain) 15 tablet 01/15/2021 Active Active Problems Problem Noted Date Diagnosed Date CARDIOVASCULAR SCREENING; LDL GOAL LESS THAN 160 09/10/2010 Depressive disorder, not elsewhere classified Overview: Suspect bulimia- dental enamel noted to be in rough shape 01/15 Insomnia 03/20/2006 Overview: Problem list name updated by automated process. Provider to review Excessive or frequent menstruation 11/30/2005 Immunizations Name Administration Dates Next Due DTAP (<7y) 08/06/1995, 1,07/30/1990,05/08/1990, HIB (PRP-T) 02/17/1993 HepB 07/15/2002,05/04/2002,03/31/2002 Influenza (IIV3) PF 12/01/2007,10/07/2006,2003 MMR 07/15/2002,03/23/1991 Poliovirus, inactivated (IPV) 08/06/1995, 991,05/08/1990,01/14/1990 TD,PF 7+ (Tenivac) 07/15/2002 Family History Medical History Relation Comments Arthritis Father Family History Negative Father Breast Cancer Mother Family History Negative Mother Relation Status Comments Father Alive Mother Alive Social History Tobacco Use Types Packs/Day Years Used Date Smoking Tobacco: Never Alcohol Use Standard Drinks/Week Comments No 0 (1 standard drink = 0.6 oz pur e alcohol) Adolescent Education Answer Date Record ed Getting School Help Needed Not on file 08/19 Sex and Gender Information Value Date Recorded Sex Assigned at Not on file Gender Identity Not on file Sexual Orientation Not on file Last Filed Vital Signs Vital Sign Reading Time Taken Comments Blood Pressure 95/64 01/15/2021 8:00 AM [employer] Pulse 80 01/15/2021 8:00 AM [employer] Temperature 36.7 ??C (98.1 ??F) 01/15/2021 6:37 AM CS T Respiratory Rate 18 01/15/2021 6:37 AM [employer] Oxygen Saturation 99% 01/15/2021 8:00 AM [employer] Inhaled Oxygen Concentration - - Weight 51.3 kg (113 lb) 04/06/2017 4:26 AM CDT Height 160 cm (5' 3) 01/15/2021 6:37 AM [employer] Body Mass Index 20.02 04/06/2017 4:26 AM CDT Plan of Treatment Health Maintenance Due Date Last Done Comments ADVANCE CARE PLANNING 1989 ANNUAL REVIEW OF HM ORDERS 1989 YEARLY PREVENTIVE VISIT 1989 DTAP/TDAP/TD IMMUNIZATION (6 - Tdap) 07/16/2002 07/15/2002, 08/06/1995, 03/23/1991, Additional history exists HEPATITIS B IMMUNIZATION (4 of 4 - 4-dose series) 07/21/2002 07/15/2002, 05/04/2002, 03/31/2002 HIV SCREENING 2004 HEPATITIS C SCREENING 2007 PAP 2010 COVID-19 Vaccine ( season) 2023 INFLUENZA VACCINE (#1) 2023 8, 11/22/2017, 07/09/2015, Additional history exists PHQ-2 (once per calendar year) 2023 IPV IMMUNIZATION Completed 08/06/1995, , 05/08/1990, Additional history exists HPV IMMUNIZATION Completed 02/22/2012, 11/2010, 12/15/2010 MENINGITIS IMMUNIZATION Aged Out No l onger eligible based on patient's age to complete this topic Pneumococcal Vaccine: Pediatrics (0 to 5 Years) and At-Risk Patients (6 to 64 Years) Aged Out No longer eligible based on patient's age to complete this topic RSV MONOCLONAL ANTIBODY Aged Out No l onger eligible based on patient's age to complete this topic Care Teams Data Steward Relationship Specialty Start Date End Date Krystyna Phipps MD [address] [place] [address] PCP - General Family Medicine 01/15/21
--- OUTSIDE RECORDS SUMMARY | 2024-02-20 06:59 | XMS_ITS | Clinical Summary ---
Author Name Unknown Organization [facility] Address [place], [place] [address] Care Team Providers Care Copy Lathe Tender Name Role Phone Krystyna Phipps DO Primary Care Provider Allergies Active Allergy Reactions Criticality Noted Date Comments Cephalexin Rash 08/14/2023 Ciprofloxacin Arthralgia 04/09/2017 Pt called to say that the day after finishing her Cipro course she developed shoulder and elbow aching and wanted it noted in her chart. Lactose GI Upset Medium 03/30/2020 Diarrhea, gas, stomach cramps. Latex, Natural Rubber Other - Describe I n Comment Field 03/05/2018 Family history Nickel Rash 03/05/2018 Nickel, zinc Metronidazole Nausea Only 07/14/2019 Simvastatin Myalgia 12/12/2018 Medications Medication Sig Dispensed Refills Start Date End Date Status cholecalciferol (VITAMIN D-3) 2,000 unit capsule 1 capsule daily. 0 01/16/2021 Active polyethylene glycoL (MIRALAX) 17 gram/scoop powder Mix 0.5 scoops (8.5 g) in liquid then take by mouth. 0 05/15/2023 Active venlafaxine (EFFEXOR XR) 37.5 mg Extended-Release capsuleIndication s:Anxiety and depression Take 1 Capsule (37.5 mg) by mouth once daily with a meal. 90 Capsule 1 11/29/2023 Active cetirizine (ZYRTEC) 10 mg tablet Take 10 mg by mouth once daily. Active cyanocobalamin (Vitamin B-12) 1,000 mcg tabletIndications :Low serum vitamin B12 Take 5 Tablets (5,000 mcg) by mouth once daily. 01/29/2024 Active cyanocobalamin (Vitamin B-12) 1,000 mcg tablet Take 5 Tablets (5,000 mcg) by mouth once daily. 90 Tablet 3 11/30/2022 01/29/2024 Discontinued (*Medication adjustment) Active Problems Problem Noted Date Diagnosed Date Bipolar II disorder 11/26/2023 Irritable bowel syndrome with diarrhea Family history of Guardado syndrome 01/16/2021 Submucous leiomyoma of uterus 04/14/2020 Overview: mild grown from 2015 now 3cm 2019 Mixed hyperlipidemia 11/27/2018 Seasonal allergies 08/25/2012 Spasm of muscle 08/25/2012 Pap smear for cervical cancer screening Overview: Plan: Pap/HPV due 02/2027 Resolved Problems Problem Noted Date Diagnosed Date Resolved Date Encounter for IUD insertion 06/28/2015 12/26/2015 Overview: Dr Paz / [facility] Need for hepatitis B vaccination 05/26/2015 11/26/2018 Encounters Date Type Department Care Team Description 01/31/2024 Orders Only [facility] [address] [place] [address] Krystyna Phipps DO 1 scan: (1-Ord) [id number] 01/29/2024 9:15 AM CDT Office Visit [address] Castillo [address] [place] [address] [place] [address] 01/29/2024 7:45 AM CDT Preop Visit [facility] [address] [facility] [address] Krystyna Phipps DO Preoperative Exam (02/19 vaginal endometriosis excision/Dr. Gomez [facility]) 01/29/2024 Travel 12/25/2023 Refill [facility] [address] [place] [address] Krystyna Phipps DO Refill Request (Venlafaxine) 11/29/2023 2:40 PM PATIENT RELATIONS SPECIALIST Telemedicine [facility] [address] [place] [address] Krystyna Phipps DO Medication Management (Bipolar meds/); Telehealth (no vitals taken/) 11/29/2023 Travel 11/26/2023 7:00 AM PATIENT RELATIONS SPECIALIST Office Visit [facility] [address] [place] [address] Keya Cruz PA Eye Problem (Left eye became red two days ago. Getting worse. Itching, discomfort and feels gummy ) 11/26/2023 Travel 11/25/2023 Nurse Triage [facility] [address] [place] [address] Krystyna Phipps, Vomiting from Last 3 Months Immunizations Name Administration Dates Next Due COVID-19 vaccine (PedidosYa / PedidosJá NTSand Sign 30mcg/0.3mL) 12YO+ BIVALENT PF, MDV 09/19/2022 DTaP 08/06/1995, 1,07/30/1990,1989,01/14/1990 HIB PRP-T (ActHIB,Hiberix) 02/17/1993 Hepatitis B (Peds) 07/15/2002,05/04/2002, 002 Human Papilloma Virus Vaccine 02/22/2012, 011,12/15/2010 Imovax 12/13/2017,11/22/2017 Inactivated Polio Vaccine 08/06/1995,,05/08/1990,1989 Influenza, IIV3 (Age >=3 years) 07/09/20 15,07/08/2014,12/01/2007,2005,11/07/2004 Influenza, IIV4 09/19/2022, 1,01/16/2021,2017,11/22/2017 Influenza,CCIIV4 PRESERV FREE 09/16/2019 MMR 07/15/2002,03/23/1991 Rabavert 11/29/2017 Td (Age >=7 Years) 03/09/2022,06/11/2003 Td, Preservative Free (age > = 7 Years) 07/15/2002 Tdap 11/18/2010 Family History Medical History Relation Name Comments Allergies Brother Allergies Father Good Health Father Hyperlipidemia Father Cancer Maternal Aunt either uterine or cervical?? Cancer-prostate Maternal Grandfather Other Maternal Grandmother dementi a Allergies Mother Cancer-breast Mother 46 at diagnosi s, Hyperlipidemia Mother Osteoarthritis Mother Other Mother gum surgery Other cancer Mother guardado syndrome supsected in family/piper dx Cancer-breast Other Maternal great aunt Cancer Paternal Grandfather bone Unknown Paternal Grandmother Relation Name Status Comments Brother Father Maternal Aunt Maternal Grandfather Maternal Grandmother Mother Other Paternal Grandfather Paternal Grandmother Social History Tobacco Use Types Packs/Day Years Used Date Smoking Tobacco: Former Cigarettes Q uit: 11/11/2008 Smokeless Tobacco: Never Tobacco Cessation:Counseling Given: Yes Alcohol Use Standard Drinks/Week Comments Yes 1 (1 standard drink = 0.6 oz pur e alcohol) occastional PHQ-2 Answer Date Recorded PHQ-2 TOTAL SCORE 3 11/20/2023 Social Connections Answer Date Recorded Frequency of Communication with Friends and Fami ly 0 07/30/2023 Financial Resource Strain Answer Date R ecorded Difficulty of Paying Living Expenses 2 07/30/2023 Difficulty of Paying Living Expenses 1 07/30/2023 Food Insecurity Answer Date Recorded Worried About Running Out of Food in the Last Ye ar 1 07/30/2023 Transportation Needs Answer Date Record ed Lack of Transportation (Medical) 1 07/30/2023 Housing Stability Answer Date Recorded Unable to Pay for Housing in the Last Year 1 07/30/2023 Sex and Gender Information Value Date Recorded Sex Assigned at Not on file Gender Identity Not on file Sexual Orientation Not on file Obstetrics History Para Term AB IAB SAB Ectopic Multiple Livin g Live Births 0 0 0 0 0 0 0 0 0 0 Last Filed Vital Signs Vital Sign Reading Time Taken Comments Blood Pressure 107/72 01/29/2024 7:54 AM CDT Pulse 84 01/29/2024 7:54 AM CDT Temperature 36.4 ??C (97.6 ??F) 01/29/2024 7:54 AM CD T Respiratory Rate 14 12/31/2014 11:30 AM PATIENT RELATIONS SPECIALIST Oxygen Saturation 97% 01/29/2024 7:54 AM CDT Inhaled Oxygen Concentration - - Weight 62.6 kg (138 lb) 01/29/2024 7:54 AM CDT Height 160 cm (5' 3) 05/15/2023 1:04 PM CDT Body Mass Index 24.45 05/15/2023 1:04 PM CDT Plan of Treatment Health Maintenance Due Date Last Done Comments BMI (ht and wt on same day) for age 18+ 05/15/2024 05/15/2023, 10/29/2022, 03/09/2022, Additional history exists Influenza for age 9-49 07/12/2024 , 10/11/2021, 01/16/2021, Additional history exists Depression screening for age 12+ 11/20/2024 11/20/2023, 11/16/2023, 02/20/2023, Additional history exists Pap test for age 21-65 03/09/2027 , 03/09/2022, 11/26/2018, Additional history exists Tetanus booster 03/09/2032 03/09/2022, 06/2011, 06/11/2003, Additional history exists Tdap Completed 11/18/2010 HIV for age 15-65 Completed 11/22/2017, , 09/03/2011 Hepatitis C screening for age 18-79 Completed 11/22/2017, 05/25/2015 COVID-19 vaccine series Completed 09/25/20 23, 09/19/2022, 11/01/2021, Additional history exists Pneumococcal series for age 6-64 Aged Out No longer eligible based on patient's age to complete this topic Procedures Procedure Name Priority Date/Time Associated Diagnosis Comments EXTENDED HOLTER Routine 02/12/2024 Palpitations EKG 12 LEAD Routine 01/31/2024 8:03 AM CDT Palpitations DC READING EKG - NO CHARGE, COMP ONLY Routine 01/31/2024 8:01 AM CDT Palpitations URINALYSIS MICROSCOPIC Routine 01/29/2024 9:01 AM CDT Dysuria UA W/ SEDIMENT EXAM REFLEXED PER CRITERIA Routine 01/29/2024 9:01 AM CDT Dysuria CBC WITH AUTO DIFFERENTIAL Routine 01/29/2024 8:48 AM CDT Palpitations CBC WITH AUTO DIFFERENTIAL Routine 01/29/2024 8:48 AM CDT Palpitations TSH WITH REFLEX Routine 01/29/2024 8:48 AM CDT Palpitations HPV THIN PREP Routine 03/09/2022 10:50 AM CDT Screening for cervical cancer ANTI HIV 1/2 Routine 11/22/2017 8:50 AM PATIENT RELATIONS SPECIALIST Screen for STD (sexually transmitted disease) ANTI HCV Routine 11/22/2017 8:50 AM PATIENT RELATIONS SPECIALIST Screen for STD (sexually transmitted disease) from Last 3 Months or Most Recently Relevant to Health Maintenance Results * ZIO PATCH XT - weekly to monthly symptoms. (02/12/2024) Krystyna Phipps DO CARDIAC SERVICES OR D * EKG 12 LEAD (01/31/2024 8:03 AM CDT) Krystyna Phipps DO EKG ORD * DC READING EKG - NO CHARGE, COMP ONLY (01/31/2024 8:01 AM CDT) Krystyna Phipps DO PB - PROVIDER READI NGS * (ABNORMAL) URINALYSIS MICROSCOPIC (01/29/2024 9:01 AM CDT) RBC 0-2 0-2, None Seen /HPF 01/29/2024 9:09 AM CDT [facility] WBC None Seen 0-2, 3-5, None Seen /HPF 01/29/2024 9:09 AM CDT [facility] BACTERIA Rare None Seen, Rare, Few Bacteria/ HPF 01/29/2024 9:09 AM CDT [facility] EPITHELIAL CELLS Few None Seen, Few Epi/HPF 01/29/2024 9:09 AM CDT [facility] Mucus Present 01/29/2024 9:09 AM CDT [facility] CALCIUM OXALATE CRYSTALS Present(A) (none) 01/29/2024 9:09 AM CDT [facility] Urine URINE SPECIMEN / Unknown Non-Blood / Unknown 01/29/2024 9:01 AM CDT 01/29/2024 9:01 AM CDT Krystyna Phipps DO URINE [facility] [address] [place] [address], [place] [phone] * (ABNORMAL) UA W/ SEDIMENT EXAM REFLEXED PER CRITERIA (01/29/2024 9:01 AM CDT) COLOR Yellow Yellow Color 01/29/2024 9:08 AM CDT [facility] CLARITY Clear Clear Clarity 01/29/2024 9:08 AM CDT [facility] SPECIFIC GRAVITY,URINE 1.025 1.010, 1.015, 1.020, 1.025 01/29/2024 9:08 AM CDT [facility] PH,URINE 6.5 6.0, 7.0, 8.0, 5.5, 6.5, 7.5, 8.5 01/29/2024 9:08 AM CDT [facility] UROBILINOGEN, QUALITATIVE Normal Normal EU/dl 01/29/2024 9:08 AM CDT [facility] PROTEIN, URINE Negative Negative mg/dL 01/29/2024 9:08 AM CDT [facility] GLUCOSE, URINE Negative Negative mg/dL 01/29/2024 9:08 AM CDT [facility] KETONES,URINE Negative Negative mg/dL 01/29/2024 9:08 AM CDT [facility] BILIRUBIN,URI NE Negative Negative 01/29/2024 9:08 AM CDT [facility] OCCULT BLOOD,URINE Trace(A) Negative 01/29/2024 9:08 AM CDT [facility] NITRITE Negative Negative 01/29/2024 9:08 AM CDT [facility] LEUKOCYTE ESTERASE Negative Negative 01/29/2024 9:08 AM CDT [facility] Urine URINE SPECIMEN / Unknown Non-Blood / Unknown 01/29/2024 9:01 AM CDT 01/29/2024 9:01 AM CDT Krystyna Blancast DO URINE [facility] [address] [place] [address], * (ABNORMAL) CBC WITH AUTO DIFFERENTIAL (01/29/2024 8:48 AM CDT) WHITE BLOOD COUNT 9.0 4.5 - 11.0 thou/cu mm 01/29/2024 2:39 PM CDT [facility] RED BLOOD COUNT 4.11 4.00 - 5.20 mil/cu mm 01/29/2024 2:39 PM CDT [facility] HEMOGLOBIN 14.2 12.0 - 16.0 g/dL 01/29/2024 2:39 PM CDT [facility] HEMATOCRIT 38.6 33.0 - 51.0 % 01/29/2024 2:39 PM CDT [facility] MCV 94 80 - 100 fL 01/29/2024 2:39 PM CDT [facility] MCH 34.5(H) 26.0 - 34.0 pg 01/29/2024 2:39 PM CDT [facility] MCHC 36.8(H) 32.0 - 36.0 g/dL 01/29/2024 2:39 PM CDT [facility] RDW 11.9 11.5 - 15.5 % 01/29/2024 2:39 PM CDT [facility] PLATELET COUNT 251 140 - 440 thou/cu mm 01/29/2024 2:39 PM CDT [facility] MPV 13.0(H) 6.5 - 11.0 fL 01/29/2024 2:39 PM CDT [facility] NRBC 0.0 % 01/29/2024 2:39 PM CDT [facility] ABS NRBC 0.0 thou /cu mm 01/29/2024 2:39 PM CDT [facility] % NEUT 51.6 % 01/29/2024 2:39 PM CDT [facility] % LYMPH 38.2 % 01/29/2024 2:39 PM CDT [facility] % MONO 9.7 % 01/29/2024 2:39 PM CDT [facility] % EOS 0.2 % 01/29/2024 2:39 PM T [facility] % BASO 0.2 % 01/29/2024 2:39 PM CDT [facility] % IMMATURE GRAN (METAS,MYELOS,DC OS) 0.1 % 01/29/2024 2:39 PM CDT [facility] ABSOLUTE NEUTROPHILS 4.6 1.7 - 7.0 thou/cu mm 01/29/2024 2:39 PM T [facility] ABSOLUTE LYMPHOCYTES 3.4(H) 0.9 - 2.9 thou/cu mm 01/29/2024 2:39 PM CDT [facility] ABSOLUTE MONOCYTES 0.9(H) <0.9 thou/cu mm 01/29/2024 2:39 PM T [facility] ABSOLUTE EOSINOPHILS 0.0 <0.5 thou/cu mm 01/29/2024 2:39 PM T [facility] ABSOLUTE BASOPHILS 0.0 <0.3 thou/cu mm 01/29/2024 2:39 PM T [facility] ABSOLUTE IMMATURE GRANULOCYTES(MET ,MYELOS,PROS) 0.0 <0.3 thou/cu mm 01/29/2024 2:39 PM [facility] Blood BLOOD SPECIMEN / Unknown Venipuncture / Unknown 01/29/2024 8:48 AM CDT 01/29/2024 8:48 AM CDT Krystyna Phipps DO HEMATOLOGY [facility] [address] [place] [address], * TSH WITH REFLEX (01/29/2024 8:48 AM CDT) TSH 1.62 0.27 - 4.20 uIU/mL 01/29/2024 5:34 PM CDT [facility] Blood BLOOD SPECIMEN / Unknown Venipuncture / Unknown 01/29/2024 8:48 AM CDT 01/29/2024 8:48 AM CDT Narrative [facility] - 01/29/2024 5:34 PM CDT In Adults, TSH values between 5.00 and 10.00 uIU/ml do not necessarily indicate the presence of Hypothyroidism. Correlation with clinical findings such as presence of goiter and/or Thyroperoxidase (TPO) Antibody may be helpful. For more information please refer to ASHER 2004; 291: 228-238. Krystyna Phipps DO CHEMISTRY Performing Organization Address City/[facility]/ZIP Co de Phone Number [facility] [address] [place] [address], [place] * HPV HIGH RISK (03/09/2022 10:50 AM CDT) TYPE 16 Negative Negative 03/13/2022 2:07 PM CDT [facility] TYPE 18 Negative Negative 03/13/2022 2:07 PM CDT [facility] OTHER HIGH RISK TYPES Negative Negative 03/13/2022 2:07 PM CDT [facility] Other (Cervical) Non-Blood / Unknown 03/09/2022 10:50 AM CDT 03/12/2022 9:45 AM CDT Narrative [facility] - 03/13/2022 2:07 PM CDT HPV types 16, 18, 31, 33, 35, 39, 45, 51, 52, 56, 58, 59, 66 and 68 DNA were undetectable or below the pre-set threshold. Methodology: [employer] [address] 4800 HPV Test Krystyna Phipps DO MICROBIOLOGY [facility] [address] [place] [address], * ANTI HCV (11/22/2017 8:50 AM PATIENT RELATIONS SPECIALIST) HEPATITIS C ANTIBODY Non-Reacti ve Non-Reacti ve 11/22/2017 2:20 PM PATIENT RELATIONS SPECIALIST [facility] Blood BLOOD SPECIMEN / Unknown Venipuncture / Unknown 11/22/2017 8:50 AM PATIENT RELATIONS SPECIALIST 11/22/2017 8:50 AM PATIENT RELATIONS SPECIALIST Narrative [facility] - 11/22/2017 2:20 PM PATIENT RELATIONS SPECIALIST Antibodies to HCV not detected; does not exclude the possibility of exposure to HCV. Krystyna Phipps DO SEND OUTS Performing Organization Address City/[facility]/ZIP Co de Phone Number [facility] [address] [place] [address], * ANTI HIV 1/2 (11/22/2017 8:50 AM PATIENT RELATIONS SPECIALIST) HIV-1/HIV-2 ANTIBODY Non-Reacti ve Non-Reacti ve 11/22/2017 2:35 PM PATIENT RELATIONS SPECIALIST [facility] Blood BLOOD SPECIMEN / Unknown Venipuncture / Unknown 11/22/2017 8:50 AM PATIENT RELATIONS SPECIALIST 11/22/2017 8:50 AM PATIENT RELATIONS SPECIALIST Narrative [facility] - 11/22/2017 2:35 PM PATIENT RELATIONS SPECIALIST HIV-1 p24 and HIV-1/HIV-2 Ab not detected Krystyna Phipps DO SEND OUTS [facility] [address] [place] [address], from Last 3 Months or Most Recently Relevant to Health Maintenance Care Teams Copy Lathe Tender Relationship Specialty Start Date End Date Krystyna Phipps DO [address] [place] [address] PCP - General Family Practice 10/28/17
--- OUTSIDE RECORDS SUMMARY | 2024-02-20 06:59 | XMS_ITS | Referral Summary ---
Author Name Unknown Organization [facility] Address [address] [place] [id number] Care Team Providers Care Type Rolling Machine Operator Name Role Phone Krystyna Phipps MD Primary Care Provider [phone] Allergies Active Allergy Reactions Criticality Noted Date [...] (IPV) 08/06/1995, 991,05/08/1990,01/14/1990 TD,PF 7+ (Tenivac) 07/15/2002 Social History Tobacco Use Types Packs/Day Years [...] Comments Blood Pressure 95/64 01/15/2021 8:00 AM SAT MATH TUTOR Pulse 80 01/15/2021 8:00 AM SAT MATH TUTOR Temperature 36.7 ??C (98.1 ??F) 01/15/2021 6:37 AM CS T Respiratory Rate 18 01/15/2021 6:37 AM SAT MATH TUTOR Oxygen Saturation 99% 01/15/2021 8:00 AM SAT MATH TUTOR Inhaled Oxygen Concentration - - Weight 51.3 kg (113 lb) 04/06/2017 4:26 AM CDT Height 160 cm (5' 3) 01/15/2021 6:37 AM SAT MATH TUTOR Body Mass Index 20.02 04/06/2017 4:26 AM CDT Plan of Treatment Not on file Care Teams Type Rolling Machine Operator Relationship Specialty Start Date End Date Krystyna Phipps MD [address] [place] [address] PCP - General Family Medicine 01/15/21
[2024-02-20] MEDS: LACTATED RINGERS 1000 ML 1,000 ML 100 ML IV (07:45)
[2024-02-20] MEDS: SODIUM CHLORIDE 0.9 % (FLUSH) 10 ML SYRINGE IVF (07:45)
--- NOTE | 2024-02-20 08:43 | W.PM.H&PU ---
History & Physical Update History & Physical Update H&P Reviewed and patient assessed: No changes noted
[2024-02-20] MEDS: CEFAZOLIN 2 GM INJ IVP (09:15)
[2024-02-20] MEDS: FERRIC SUBSULFATE 8 GM VIAL 1 VIAL TOPICAL (10:01)
--- NOTE | 2024-02-20 10:11 | W.ANESCHARGE ---
Anesthesia Charges Start Date/Time Anesthesia Start Date: 02/20/24 Anesthesia Start Time: 09:05 Stop Date/Time Anesthesia Stop Date: 02/20/24 Anesthesia Stop Time: 10:10
--- NOTE | 2024-02-20 10:43 | SUR.PHASEI ---
Patient meets anesthesia discharge criteria from PACU
--- NOTE | 2024-02-20 10:44 | W.ANESCHARGE ---
Anesthesia Charges Start Date/Time Anesthesia Start Date: 02/20/24 Anesthesia Start Time: 09:05 Stop Date/Time Anesthesia Stop Date: 02/20/24 Anesthesia Stop Time: 10:10
--- NOTE | 2024-02-20 13:52 | P.GYNPRC_ITS ---
Procedure Note Date of procedure: 02/20/24 Will [facility] bill your pro fee for this procedure?: Yes Pre-op diagnosis: Endometriosis Cyclic vaginal bleeding after hysterectomy Post-op diagnosis: Endometriosis of the vaginal cuff Procedure: Exam under anesthesia Fulguration and excision of endometriosis of the vaginal cuff Anesthesia: spinal Complications: None Surgeon: Tatum Gomez MD Wrapper Hands Sprayer: Mellisa Dominguez Estimated blood loss (mL): 5 IV fluids (mL): 700 Urine Output (mL): 50 Pathology: specimen obtained, sent to pathology (Vaginal epithelium, containing suspected endometriotic implants) Condition: stable Disposition: same day Findings: Upon pelvic exam under anesthesia, the cervix and vagina were surgically absent. The cul-de-sac just behind the vaginal cuff was nodular, consistent with previous laparoscopic findings of obliterated cul-de-sac. There were several scattered macules along the vaginal cuff and the posterior vaginal fornix, each measuring approximately 1 mm in diameter and ranging in color from pink - clear to deep red, representing suspected endometriosis implants. Procedure Description: Patient was taken to the operating room with IV running. She received cefazolin in preoperative prophylaxis. She received spinal anesthesia. She was positioned in dorsal lithotomy position with her legs fully supported in Yellofin stirrups. She was prepped and draped in the usual sterile fashion. Bimanual exam was performed for the above-noted findings. Bladder was straight catheterized for the above noted amount. The above described lesions were excised sharply with a combination of scalpel and scissors, with the aid of an Allis clamp. Excised portion of the posterior vagina adjacent to the vaginal cuff was approximately 1.5 cm in greatest dimension. The tissue beneath these lesions was coagulated with monopolar cautery. A running suture of 2-0 Vicryl was used in addition to this to close the epithelial defect. There was 1 isolated lesion slightly to the left near the left vaginal cuff angle which was apparently removed with the toothed forceps, and the base was of this was coagulated with monopolar cautery as well. Finally, Monsel solution was applied to the base of the lesion. Speculum was removed. Hemostasis was noted. Patient tolerated procedure well and was taken to recovery area in stable condition.
== END 2024-02-20 11:50 | disposition home or self-care (01) ==
PROVIDERS: PCP Family Medicine; Visit Provider Obstetrics & Gynecology
PROC: 0UQG0ZZ Repair Vagina, Open Approach (ICD-10-PCS; CPT 57061; principal; 2024-02-20 08:15)
DX: N80.42 Endometriosis of rectovaginal septum with involvement of vagina (principal)
CPT/HCPCS: 57061; 00940; 36415; 86850; 86900; 86901; 88305; J0690; J1100; J1885; J2250; J2405; J2704; J3010; J7120

== ENCOUNTER 2024-12-20 18:32 | Emergency (ER) | payer MEDICAID, SELFPAY ==
--- OUTSIDE RECORDS SUMMARY | 2024-12-20 18:33 | XMS_ITS | Clinical Summary ---
Author Organization [facility] Address [place], [place] [address] Care Team Providers Care Hand Woven Carpet And Rug Mender Name Role Phone Desire Krystyna Mckinnon Primary Care Provider Allergies Active Allergy Reactions [...] Nausea Only 07/14/2019 Simvastatin Myalgia 12/12/2018 Medications cholecalciferol (VITAMIN D-3) 2,000 unit capsule 1 capsule daily. 0 01/16/2021 Active polyethylene glycoL (MIRALAX) 17 gram/scoop powder Mix 0.5 scoops (8.5 g) in liquid then take by mouth. 0 05/15/2023 Active cetirizine (ZYRTEC) 10 mg tablet Take 10 mg by mouth once daily. Active cyanocobalamin (Vitamin B-12) 1,000 mcg tabletIndicatio ns:Low serum vitamin B12 Take 5 Tablets (5,000 mcg) by mouth once daily. 01/29/2024 Active venlafaxine (EFFEXOR XR) 37.5 mg Extended-Releas e capsuleIndicati ons:Anxiety and depression TAKE 1 CAPSULE(37.5 MG) BY MOUTH EVERY DAY WITH A MEAL 90 Capsule 1 06/30/2024 Active Orilissa 150 mg tab Take 1 Tablet by mouth once daily. 11/10/2024 Active busPIRone (BUSPAR) 10 mg tabletIndicatio ns:Anxiety and depression Take 1 Tablet (10 mg) by mouth two times daily. 180 Tablet 2024 Active Active Problems Problem Noted Date Diagnosed Date Bipolar II disorder 11/26/2023 Irritable bowel syndrome with diarrhea Family history of Guardado syndrome 01/16/2021 Submucous leiomyoma of uterus 04/14/2020 Overview (04/14/2020): mild grown from 2015 now 3cm 2019 Mixed hyperlipidemia 11/27/2018 Seasonal allergies 08/25/2012 Spasm of muscle 08/25/2012 Pap smear for cervical cancer screening Overview (04/01/2022): Plan: Pap/HPV due 02/2027 Resolved Problems Problem Noted Date Diagnosed Date Resolved Date Encounter for IUD insertion 06/28/2015 12/26/2015 Overview (06/28/2015): Dr Paz / [facility] Need for hepatitis B vaccination 05/26/2015 11/26/2018 Encounters Date Type Department Care Team Description 2024 7:45 AM PEARL CUTTER Telemedicine [facility] [address] [place] [address] Krystyna Phipps, Medication Management (effexor/) 12/01/2024 Travel from Last 3 Months Immunizations Name Administration Dates Next Due COVID-19 vaccine ([employer] NTA[employer] Mobile 30mcg/0.3mL) 12YO+ BIVALENT PF, MDV 09/19/2022 DTaP [...] PHQ-2 Answer Date Recorded PHQ-2 TOTAL SCORE 6 2024 Social Connections Answer Date Recorded Frequency of Communication with Friends and Fami ly Not on file 07/31/2024 Financial Resource Strain Answer Date R ecorded [...] Housing in the Last Year 1 07/30/2023 Comments No Sex and Gender Information Value Date Recorded Sex Assigned at Not on file Legal Sex Female 5:25 AM PEARL CUTTER Gender Identity Not on file Sexual Orientation Not on file Occupation Industry Job Start Date Job End Date Not on file Not on file Not on file Not on file Obstetrics History Para Term AB IAB SAB Ectopic Multiple Livin g Live Births 0 0 0 0 0 0 0 0 0 0 Last Filed Vital Signs Vital Sign Reading Time Taken Comments Blood Pressure 107/72 01/29/2024 7:54 AM CDT Pulse 84 01/29/2024 7:54 AM CDT Temperature 36.4 C (97.6 F) 01/29/2024 7:54 AM CDT Respiratory Rate 14 12/31/2014 11:30 AM PEARL CUTTER Oxygen Saturation 97% 01/29/2024 7:54 AM CDT Inhaled Oxygen Concentration - - Weight 62.6 kg (138 lb) 01/29/2024 7:54 AM CDT Height 160 cm (5' 3) 05/15/2023 1:04 PM CDT Body Mass Index 24.45 05/15/2023 1:04 PM CDT Plan of Treatment Upcoming Encounters Date Type Department Care Team (Late st Contact Info) Description 01/06/2025 11:30 AM PEARL CUTTER Office Visit [facility] [address] [place] [address] Krystyna Phipps DO [address] [place] [address] Health Maintenance Due Date Last Done Comments BMI (ht and wt on same day) for age 18+ 05/15/2024 05/15/2023, 10/29/2022, 03/09/2022, Additional history exists Influenza for age 9-49 07/12/2024 , 10/11/2021, 01/16/2021, Additional history exists Depression screening for age 12+ 2025 2024, 11/16/2023, 02/20/2023, Additional history exists Pap test for age 21-65 03/09/2027 , 03/09/2022, 11/26/2018, Additional history exists Tetanus booster 03/09/2032 03/09/2022, 06/2011, 06/11/2003, Additional history exists Tdap Completed 11/18/2010 HIV for age 15-65 Completed 11/22/2017, , 09/03/2011 Hepatitis C screening for age 18-79 Completed 11/22/2017, 05/25/2015 COVID-19 vaccine series Completed 09/09/20, 09/25/2023, 09/19/2022, Additional history exists Pneumococcal series for age 6-49 Aged Out No longer eligible based on patient's age to complete this topic Procedures Procedure Name Priority Date/Time Associated Diagnosis Comments HPV HIGH RISK Routine 03/09/2022 10:50 AM CDT Screening for cervical cancer ANTI HIV 1/2 Routine 11/22/2017 8:50 AM PEARL CUTTER Screen for STD (sexually transmitted disease) ANTI HCV Routine 11/22/2017 8:50 AM PEARL CUTTER Screen for STD (sexually transmitted disease) from Last 3 Months or Most Recently Relevant to Health Maintenance Results * HPV HIGH RISK (03/09/2022 10:50 AM CDT) TYPE 16 Negative Negative 03/13/2022 2:07 PM CDT [facility] TYPE 18 Negative Negative 03/13/2022 2:07 PM CDT [facility] OTHER HIGH RISK TYPES Negative Negative 03/13/2022 2:07 PM CDT [facility] Other (Cervical) Non-Blood / Unknown 03/09/2022 10:50 AM CDT 03/12/2022 9:45 AM CDT Narrative [facility] - 03/13/2022 2:07 PM CDT HPV types 16, 18, 31, 33, 35, 39, 45, 51, 52, 56, 58, 59, 66 and 68 DNA were undetectable or below the pre-set threshold. Methodology: Gal[employer] [address] 4800 HPV Test Krystyna Phipps DO MICROBIOLOGY Final Resul t [facility] [employer] [facility] [address] [place] [address], [place] * ANTI HCV (11/22/2017 8:50 AM PEARL CUTTER) HEPATITIS C ANTIBODY Non-Reacti ve Non-Reacti ve 11/22/2017 2:20 PM PEARL CUTTER [facility]AL [facility] Blood BLOOD SPECIMEN / Unknown Venipuncture / Unknown 11/22/2017 8:50 AM PEARL CUTTER 11/22/2017 8:50 AM PEARL CUTTER Narrative [facility] - 11/22/2017 2:20 PM PEARL CUTTER Antibodies to HCV not detected; does not exclude the possibility of exposure to HCV. Krystyna Phipps DO SEND OUTS Final Resul t Performing Organization Address City/[facility]/ZIP Co de Phone Number [facility] [address] [place] [address], [place] * ANTI HIV 1/2 (11/22/2017 8:50 AM PEARL CUTTER) HIV-1/HIV-2 ANTIBODY Non-Reacti ve Non-Reacti ve 11/22/2017 2:35 PM PEARL CUTTER [facility] Blood BLOOD SPECIMEN / Unknown Venipuncture / Unknown 11/22/2017 8:50 AM PEARL CUTTER 11/22/2017 8:50 AM PEARL CUTTER Narrative [facility] - 11/22/2017 2:35 PM PEARL CUTTER HIV-1 p24 and HIV-1/HIV-2 Ab not detected Krystyna Phipps DO SEND OUTS Final Resul t [facility] [employer] [facility] [address] [place] [address], [place] from Last 3 Months or Most Recently Relevant to Health Maintenance Insurance [facility] Care Teams Hand Woven Carpet And Rug Mender Relationship Specialty Start Date End Date Krystyna [place] [place] [address] PCP - General Family Practice 10/28/17
--- OUTSIDE RECORDS SUMMARY | 2024-12-20 18:33 | XMS_ITS | Clinical Summary ---
Author Organization [facility] Address [address] [place] [address] Care Team Providers Care Battery Tester Field Name Role Phone Krystyna Phipps MD Primary Care Provider Allergies Active Allergy Reactions Criticality Noted Date Comments Ciprofloxacin Muscle Pain (Myalgia) 04/09/2017 Pt called to say that the day after finishing her Cipro course she developed shoulder and elbow aching and wanted it noted in her chart. No Known Allergies 06/08/2004 Medications DAILY VITAMIN TABS OR 1 tab daily 0 0 4 Active ORTHO TRI-CYCLEN TABS ORIndications:Exc essive or frequent menstruation 1 tab po as directed 3 pk 3 8 Active FLUoxetine (PROZAC) 20 MG capsule Take 20 mg by mouth 7 Active dicyclomine (BENTYL) 20 MG tablet Take 1 tablet (20 mg) by mouth 4 times daily as needed (abdominal pain) 15 tablet 1 Active Active Problems Problem Noted Date Diagnosed Date CARDIOVASCULAR SCREENING; LDL GOAL LESS THAN 160 09/10/2010 Depressive disorder, not elsewhere classified Overview (01/31/2007): Suspect bulimia- dental enamel noted to be in rough shape 01/15 Insomnia 03/20/2006 Overview (08/11/2015): Problem list name updated by automated process. [...] School Help Needed Not on file 08/19 Comments No Sex and Gender Information Value Date Recorded Sex Assigned at Not on file Legal Sex Female 4:25 AM FUR WEIGHER Gender Identity Not on file Sexual Orientation Not on file Occupation Industry Job Start Date Job End Date student Not on file Not on file Not on file Last Filed Vital Signs Vital Sign Reading Time Taken Comments Blood Pressure 95/64 01/15/2021 8:00 AM FUR WEIGHER Pulse 80 01/15/2021 8:00 AM FUR WEIGHER Temperature 36.7 C (98.1 F) 01/15/2021 6:37 AM FUR WEIGHER Respiratory Rate 18 01/15/2021 6:37 AM FUR WEIGHER Oxygen Saturation 99% 01/15/2021 8:00 AM FUR WEIGHER Inhaled Oxygen Concentration - - Weight 51.3 kg (113 lb) 04/06/2017 4:26 AM CDT Height 160 cm (5' 3) 01/15/2021 6:37 AM FUR WEIGHER Body Mass Index 20.02 04/06/2017 4:26 AM CDT Plan of Treatment Not on file Care Teams Battery Tester Field Relationship Specialty Start Date End Date Krystyna Phipps MD [address] [facility] [address] PCP - General Family Medicine 01/15/21
--- OUTSIDE RECORDS SUMMARY | 2024-12-20 18:33 | XMS_ITS | Continuity of Care Document ---
Author Organization [facility] Address [address] [address] [place] [address] Phone Care Team Providers Care Meal Grinder Tender Name Role Phone Juan Soler MD Unavailable Unavailable Allergies, Adverse Reactions, Alerts Substance Reaction Status Criticality sulfamethizole Shoulder pain Active No Informati on CIPROFLOXACIN HCL Shoulder pain Active No Inform ation adhesive tape Rash Active No Information latex Rash Active No Information Medications Medication Instructions Dosage Effective Dates (start - stop) Status Comments venlafaxine 37.5 mg tablet take 1 tablet by oral route every day with food 37.5 MG - Active acetaminophen 500 mg tablet take 2 tablet by oral route every 4 - 6 hours as needed not to exceed 8 tablets per 24hrs 1000 MG - Active ibuprofen 200 mg tablet take 1 - 2 tablet by oral route every 4 hours as needed 200 MG - Active Vitamin B-12 5,000 mcg sublingual tablet take 1 mcg by sublingual route every day 1 mcg - Active Vitamin D3 50 mcg (2,000 unit) tablet take 1 tablet by oral route every day 1 tablet - Active Procedures Procedure Date Established Level 3 Established Level 4 Colonoscopy Flex; W/bx 1/mx Level Iv-surg Path Gross/micro New Level 4 Advance Directives Directive Yes / No Effective Date File Name No Information Encounters Encounter Description Practice Location Reason(s) For Visit Diagnoses Date Provider Providers Copied on Encounter [facility], [address] [address], [place], [place], [id number], [place] tel:[phone] [facility] No Information 4 Ryder Martinez. [address] [facility], [facility] [address], [place], [place], [id number] , [place]. tel: [phone] Established Level 3 [facility], [address] [address], [place], [place], [id number], [place] tel:[phone] [facility] GI Symptoms or Concerns (chief complaint) HematocheziaCo nstipation, chronic March- 3 Ryder Martinez. [address] [facility], [facility] [address], [place], [place], [id number] , [place]. tel: [phone] Referring Provider: Referral Self, USE FOR SELF REFERRALS. [facility], [address] [address], [place], [place], [id number], [place] tel:[phone] [facility] [place] [facility] Bloody diarrhea 3 Ryder Martinez. [address] [facility], [facility] [address], [place], [place], [id number] , [place]. tel: [phone] Established Level 4 [facility], [address] [address], [place], [place], [id number], [place] tel:[phone] [facility] GI Symptoms or Concerns (chief complaint) Bloody diarrhea 3 Ryder Martinez. [address] [facility], [facility] [address], [place], [place], [id number] , [place]. tel: [phone] Referring Provider: Referral Self, USE FOR SELF REFERRALS. [facility], [address] [address], [place], [place], [id number], [place] tel:[phone] [facility] GI Symptoms or Concerns (chief complaint) Diarrhea, unspecifiedMel enaDiarrhea, unspecified 3 Ryder Martinez. [address] [facility], [place], [place], [id number] , [place]. tel: [phone] Referring Provider: Arsen ESTRELLA, [address] [place] [address] [address], [place], [address] . tel:[phone] New Level 4 [facility], [address] [address], [place], [place], [id number], [place] tel:[phone] [facility] GI Symptoms or Concerns (chief complaint) ColitisBloody diarrhea 3 Tona Leger. [address] [facility] [address], [place], [place], [id number] , [place]. tel:[phone] Referring Provider: Krystyna Phipps MD, [address] [place] [address], [address]. tel:[phone] [facility], [address] [address], [place], [place], [id number], [place] tel:[phone] [facility] No Information 3 Tony Cardoso. [address] [facility] [address], [place], [place], [address] , [place]. tel:[phone] Family History Family Member Type Diagnosis Age At Onset Brother Problem (finding) Alcoholism Brother Problem (finding) Gallbladder disease Mother Problem (finding) Alcoholism Mother Problem (finding) GERD Mother Problem (finding) Cancer, breast Brother Problem (finding) GERD Immunizations Vaccine Date Status Comments Afluria Qd administered Note: [facility] bi-directional interface ; Source: Other Registry SARS-COV-2 (COVID-19) vaccin e, mRNA, spike protein, LNP, bivalent booster, preservative free, 30 mcg/0.3 mL dose, shahzad-sucrose formulation administered Note: [facility] bi-d irectional interface ; Source: Other Registry SARS-COV-2 (COVID-19) vaccin e, mRNA, spike protein, LNP, preservative free, 100 mcg/0.5mL dose or 50 mcg/0.25mL dose administered Note: [facility] bi -directional interface ; Source: Other Registry SARS-COV-2 (COVID-19) vaccin e, vector non-replicating, recombinant spike protein-Ad26, preservative free, 0.5 mL administered Note: [facility] bi- directional interface ; Source: Other Registry Influenza, injectable, Madin Tari Canine Kidney, quadrivalent with preservative administered Note: [facility] bi- directional interface ; Source: Other Registry Afluria Qd administered Note: [facility] bi-directional interface ; Source: Other Registry Human Rabies vaccine from man diploid cell culture administered Note: [facility] bi-direc tional interface ; Source: Other Registry Human rabies vaccine from Chicken fibroblast culture administered Note: [facility] bi -directional interface ; Source: Other Registry Human Rabies vaccine from man diploid cell culture administered Note: [facility] bi-direc tional interface ; Source: Other Registry Afluria Qd administered Note: [facility] bi-directional interface ; Source: Other Registry human papilloma virus vaccin e, quadrivalent administered Note: [facility] bi-direct ional interface ; Source: Other Registry human papilloma virus vaccin e, quadrivalent administered Note: [facility] bi-direct ional interface ; Source: Other Registry human papilloma virus vaccin e, quadrivalent administered Note: [facility] bi-direct ional interface ; Source: Other Registry tetanus toxoid, reduced diphtheria toxoid, and acellular pertussis vaccine, adsorbed administered Note: [facility] b i-directional interface ; Source: Other Registry Influenza, seasonal, injectable administe red Note: [facility] bi- directional interface ; Source: Other Registry Influenza, seasonal, injectable administe red Note: [facility] bi- directional interface ; Source: Other Registry Influenza, seasonal, injectable administe red Note: [facility] bi- directional interface ; Source: Other Registry Engerix-B administered Note: [facility] bi-d irectional interface ; Source: Other Registry Payers Payer name Insurance type Covered alliance party ID Authoriza tion(s) [employer] CI [id number] Social History Type Description Quantity Date Captured Comments Sex Female Smoking Status No Information Chief Complaint And Reason For Visit No Information Reason For Referral Reason For Referral No Information Plan Of Treatment Date Type Action Status Referral Ordered: MRI Enterography With Contrast Per Radiology Appointment date/timeframe: 01/14/2023 ordered Referral Ordered: MRI Enterography WITH Contrast Appointment date/timeframe: 01/03/2023 ordered Referral Ordered: C-Reactive Protein Appointment date/timeframe: First Available ordered Referral Ordered: CBC W/diff, Whole Blood Appointment date/timeframe: First Available ordered History Of Present Illness Encounter Date Complaint History Of Prese nt Illness GI Symptoms or Concerns Tata Sawant is a pleasant 32-year-old female with whom I am having a virtual visit. The patient gave informed consent for the visit and confirmed its use on private location. I 1st saw the patient in December of this year when she was seen in the after she was seen in the emergency room with a complaint of bloody diarrhea . The patient underwent colonoscopy on December 04 with random biopsies of the colon that did not show any evidence of colitis. The patient underwent an MRI on February 04, which showed questionable inflammation in the terminal ileum the large stool burden. The patient subsequently had an ESR at an outside facility that was reportedly normal ( I do not have this result ), as well as a CRP that was normal. On further discussion the patient stated that the stool she had in November was quite hard and sharp and she had significant discomfort prior to noticing she had a large amount of blood in the stool. Since that time the patient has started psylli GI Symptoms or Concerns Tata negron is very pleasant 32-year-old female with whom I am conducting a virtual visit. Consent was obtained at the visit and confirmed that she was in a private location. She was in the split screen with her mother, who does not live with her. The patient was in the emergency room on November 23 with nausea, vomiting, and bloody diarrhea. A CT scan reportedly showed mild hyperemia of the pericolonic vasculature of the transverse and left colon, which the ER doctor states is very similar to a prior study in 2019. Also mentioned was some mild wall thickening of the terminal ileum. The patient was given a course of 7 days of prednisone and had a followup colonoscopy on December 04. Random biopsies of the colon were unremarkable without evidence of even quiescent colitis. The terminal ileum appeared normal. The patient states that she has been having issues for the last 7 years. She will have an episode of some blood-tinged mucus perhaps once a year, although she was having more blood than mucus or diarrhea during her last episode. In general, she reports normal stools on a daily basis, but then states she will occasionally get some constipation followed by diarrhea. She notes no nausea, vomiting, no anorexia/early satiety/weight loss, no fever/chills/sweats, no further diarrhea or constipation other than mentioned above. No further hematemesis/melena/hematochezia. GI Symptoms or Concerns GI Symptoms or Concerns This is a 31-year-old female, who is referred to [facility] for evaluation of colitis, diarrhea and bloody stools. The patient was referred by Dr. Phipps.Today's visit was completed via virtual visit, she was in a private location with no other persons, consent was obtained.Patient explains she has had off and on episodes of bloody stools since 2015. She recently had an episode on November 23, 2022 with associated abdominal pains, nausea, dry heaving, diarrhea, and bloody stools. She recalls developing significant abdominal pains around 7:30 am and by 9:00 am she was having the diarrhea and bloody stools. Her symptoms persisted through until the evening, which brought her into the ER. Unfortunately, I do not have these records to review. She states diagnostic workup including laboratories was notable for a white count of 14. CT scan of the abdomen and pelvis noted inflammatory changes throughout the colon and terminal ileum. She was then started on a 7-day course of predniso Functional Status Date Functional Assessmen t No Information Instructions Date Instruction Additional Infor mation No Information Assessments Type Assessment Date No Information Patient Care Teams Name Effective Dates (start - stop) Status Members No Information
[2024-12-20 18:36] VITALS: BP 121/77; PULSE 96; RESP 18; TEMP 36.7; O2SAT 95; BMI 30.1
--- NOTE | 2024-12-20 18:52 | ED_ITS ---
HPI - General Adult General Chief complaint: Diarrhea Stated complaint: Abdominal pain, nausea, diarrhea Time Seen by Provider: 12/20/24 18:37 History of Present Illness HPI narrative: [age] year white female with a history of bipolar disorder anxiety hyperlipidemia and high cholesterol chronic pelvic pain, presents with diarrhea, she vomited yesterday but not today has no nausea today. Has had some crampy abdominal pain. No blood in her stool. No travel. She has had a history of mild colitis in the past. She does not feel this is similar. She feels she simply has some type of intestinal illness. She feels she is dehydrated. She has no chest pain, breathing problem, neurologic complaints. She denies as she has had hysterectomy. Related Data Home Medications ?Medication ?Instructions ?Recorded ?Confirmed venlafaxine 37.5 mg 37.5 mg PO DAILY 11/23/22 12/20/24 capsule,extended release 24 hr elagolix 150 mg tablet (Orilissa) 150 mg PO ONCE 12/20/24 12/20/24 Allergies Allergy/AdvReac Type Severity Reaction Status Date / Time ciprofloxacin (From Cipro) Allergy Mild Shoulder Verified 12/20/24 18:40 Pain latex Allergy Unknown Verified 12/20/24 18:40 zinc Allergy Unknown Verified 12/20/24 18:40 metronidazole Allergy Nausea Verified 12/20/24 18:40 simvastatin Allergy myalgia Verified 12/20/24 18:40 Review of Systems Status of ROS: Reports: 6 or more systems reviewed and unremarkable except as noted in History and below [facility] Medical History High blood cholesterol ?E78.00 - Pure hypercholesterolemia, unspecified (ICD-10) Bipolar disorder ?F31.9 - Bipolar disorder, unspecified (ICD-10) Hyperlipidemia ?E78.5 - Hyperlipidemia, unspecified (ICD-10) Anxiety ?F41.9 - Anxiety disorder, unspecified (ICD-10) Dysmenorrhea ?N94.6 - Dysmenorrhea, unspecified (ICD-10) Hematochezia ?K92.1 - Melena (ICD-10) Vaginismus ?N94.2 - Vaginismus (ICD-10) Surgical History S/P laparoscopic hysterectomy ?Z90.710 - Acquired absence of both cervix and uterus (ICD-10) S/P wisdom tooth extraction ?Z98.818 - Other dental procedure status (ICD-10) Lesion of vulva ?N90.89 - Other specified noninflammatory disorders of vulva and perineum (ICD-10) Family History Mother Breast cancer, Onset Age: 46 High cholesterol Depression Alcohol dependence Aunt Colon cancer Ovarian cancer Thyroid disease Father High cholesterol Maternal Grandfather Prostate cancer Alcohol dependence Family/Other Uterine cancer Other Family history of colon cancer Social History Smoking Status: Never smoker Do you use any of these nicotine containing products: None Second hand tobacco smoke exposure: No How often do you have a drink containing alcohol: never AUDIT-C Alcohol total score: 0 Non-prescribed substance use: denies use Caffeine: No Are you using contraception or practicing any form of control: No service: No Exam Narrative: Exam Narrative: Objective: Patient's vital signs are normal She is alert or x3 no distress, mouth is well hydrated no facial asymmetry she is very talkative Abdomen is benign soft nontender bowel sounds normoactive no rebound or peritonitis extremities Extremities are no edema neurologic nonfocal Skin periphery is warm and dry. Const: Vital Signs, click to edit/add: Vital Signs - 24 hr 12/20/24 18:36 Temperature 98.1 F Pulse Rate [Left P ulse Oximeter] 96 Respiratory Rate 18 Blood Pressure [Ri ght Upper Arm] 121/77 Pulse Oximetry 95 Course Vital Signs Vital signs: Initial Vital Signs Temperature 98.1 F 12/20/24 18:36 Temperature Source Oral 12/20/24 18:36 Pulse Rate 96 12/20/24 18:36 Respiratory Rate 18 12/20/24 18:36 Blood Pressure 121/77 12/20/24 18:36 Blood Pressure Mean 91 12/20/24 18:36 Blood Pressure Position Sitting 12/20/24 18:36 Pulse Oximetry 95 12/20/24 18:36 Vital Signs Temperature 98.1 F 12/20/24 18:36 Pulse Rate 96 12/20/24 18:36 Respiratory Rate 18 12/20/24 18:36 Blood Pressure 121/77 12/20/24 18:36 Pulse Oximetry 95 12/20/24 18:36 Temperature 98.1 F 12/20/24 18:36 Pulse Rate 96 12/20/24 18:36 Respiratory Rate 18 12/20/24 18:36 Blood Pressure 121/77 12/20/24 18:36 Pulse Oximetry 95 12/20/24 18:36 Medications Administered Medications: Discontinued Medications Generic Name Dose Route Start Last Admin Trade Name Yelitza PRN Reason Stop Dose Admin Sodium Chloride 1,000 mls @ 6,000 mls/hr 12/20/24 19:00 12/20/24 19:21 0.9 % Sodium Chloride 1000 Ml IV 12/20/24 19:09 1,000 mls/hr .Q10M SUNNY Administration Ondansetron HCl 4 mg 12/20/24 19:26 12/20/24 19:32 Ondansetron 2 Mg/Ml Inj IVP 12/20/24 19:27 4 mg ONCE ONE Administration Medical Decision Making [facility] Narrative Medical decision making narrative: 34-year-old female with a history of mild colitis but with more of a GI viral type illness. At this point she has been sick for a couple days I think she has improved in terms or nausea, she has obtained occasional crampy abdominal pain will give her some Ativan and fluid IV to rehydrate her, check her electrolytes and labs check COVID/influenza/RSV. If this is all reassuring I think she can go home rest light activity Imodium as needed [id number]. And recheck with primary care in the next several days. Addendum 7:50 p.m. the patient feels better, she is positive for COVID her white count electrolytes look within normal limits. Will discharge her to home rest light activity isolation over the next 3-4 days, until she is feels better. Return as needed. She her mom comfortable plan. Lab Data Labs: Lab Results 12/20/24 12/20/24 Range/Units 18:45 19:15 WBC 7.77 (4.50-11.00) K/uL RBC 4.49 (4.00-5.20) m/uL Hgb 13.8 (12.0-16.0) gm/dL Hct 40.5 (33.0-51.0) % MCV 90 (80-100) fL MCH 31 (26-34) pg MCHC 34 (32-36) gm/dL RDW Coeff of Ysabel 12.1 (11.5-15.5) % Plt Count 213 (140-440) K/uL Neut % (Auto) 49.1 (42.0-72.0) % Lymph % (Auto) 39.9 (20-44) % Childress % (Auto) 10.7 (0.0-11.0) % Eos % (Auto) 0.1 (0.0-7.0) % Baso % (Auto) 0.1 (0.0-3.0) % Neut # (Auto) 3.81 (1.7-7.0) K/uL Lymph # (Auto) 3.10 H (0.90-2.90) K/uL Childress # (Auto) 0.80 (0.00-0.90) K/UL Eos # (Auto) 0.01 (0.00-0.50) K/uL Baso # (Auto) 0.01 (0.00-0.30) K/uL Abs Immat Gran (auto) 0.01 (0.00-0.30) K/uL Imm/Tot Granulo (auto) 0.1 % Sodium 138 (135-149) mmol/L Potassium 3.6 (3.6-5.1) mmol/L Chloride 103 (96-114) mmol/L Carbon Dioxide 24 (20-32) mmol/L Anion Gap 11 (7-15) mEq/L BUN 7 (5-24) mg/dL Creatinine 0.6 (0.5-1.5) mg/dL Estimated Creat Clear 108.26 Estimated GFR 120 ml/min Glucose 106 (60-115) mg/dL Calcium 9.4 (8.4-10.6) mg/dL C-Reactive Protein 0.5 (0.5-1.0) mg/dL Amylase 63 (18-89) U/L SARS-CoV-2 (PCR) POSITIVE SARS-CoV-2 A (Negative) Influenza Type A (PCR) Negative PCR FLU A (Negative) Influenza Type B (PCR) Negative PCR FLU B (Negative) RSV (PCR) Negative PCR RSV (Negative) Discharge Plan Discharge Clinical Impression: Diarrhea, COVID-19 Patient Disposition: Home w/ Parent or Adult Condition: Improved Additional Instructions: Light diet, eat lost a yogurt, fluids, may use Imodium [id number] at home as needed for diarrhea. Not improving in the next week would recommend cultures in assessment further. Return sooner problems or changes or concerns. I rec ommend masking and stay isolated for the next 3-5 days until there is here feeling better Activity Level: Light activity Discharge Diet: Regular Prescriptions: No Action venlafaxine 37.5 mg capsule,extended release 24hr 37.5 mg PO DAILY Patient Comments: TAKE 1 CAPSULE BY MOUTH EVERY DAY WITH FOOD Orilissa 150 mg tablet 150 mg PO ONCE Follow Up/Referrals: Krystyna Phipps DO [Primary Care Provider] - Stand Alone Forms: [employer] Info Instructions
--- OUTSIDE RECORDS SUMMARY | 2024-12-20 18:58 | XMS_ITS | Clinical Summary ---
Author Organization [facility] Address [address] [place] [address] Care Team Providers Care Clinical Phlebotomist Name Role Phone Krystyna Phipps MD Primary Care Provider [phone] Allergies Active Allergy Reactions Criticality Noted Date [...] on file Legal Sex Female 4:25 AM ENTERPRISE SERVICES MANAGER Gender Identity Not on file Sexual Orientation Not on file Occupation Industry Job Start Date Job End Date student Not on file Not on file Not on file Last Filed Vital Signs Vital Sign Reading Time Taken Comments Blood Pressure 95/64 01/15/2021 8:00 AM ENTERPRISE SERVICES MANAGER Pulse 80 01/15/2021 8:00 AM ENTERPRISE SERVICES MANAGER Temperature 36.7 C (98.1 F) 01/15/2021 6:37 AM ENTERPRISE SERVICES MANAGER Respiratory Rate 18 01/15/2021 6:37 AM ENTERPRISE SERVICES MANAGER Oxygen Saturation 99% 01/15/2021 8:00 AM ENTERPRISE SERVICES MANAGER Inhaled Oxygen Concentration - - Weight 51.3 kg (113 lb) 04/06/2017 4:26 AM CDT Height 160 cm (5' 3) 01/15/2021 6:37 AM ENTERPRISE SERVICES MANAGER Body Mass Index 20.02 04/06/2017 4:26 AM CDT Plan of Treatment Not on file Care Teams Clinical Phlebotomist Relationship Specialty Start Date End Date Krystyna Phipps MD [address] [facility] [id number] PCP - General Family Medicine 01/15/21
--- OUTSIDE RECORDS SUMMARY | 2024-12-20 18:58 | XMS_ITS | Continuity of Care Document ---
Author Organization [facility] Address [address] [address] [place] [address] Phone Care Team Providers Care Binder Sorter Name Role Phone Juan Soler MD Unavailable [...] Diagnoses Date Provider Providers Copied on Encounter [facility], [address] [address], [place], [place], [id number], [place] tel:[phone] [facility] No Information 4 Ryder Martinez. [address] [facility] [facility] [address], [place], [place], [id number] , [place]. tel: [phone] Established Level 3 [facility], [address] [address], [place], [place], [id number], [place] tel:[phone] [facility] GI Symptoms or Concerns (chief complaint) HematocheziaCo nstipation, chronic March- 3 Ryder Martinez. [address] [facility] [facility] [address], [place], [place], [id number] , [place]. tel: [phone] Referring Provider: Referral Self, USE FOR SELF REFERRALS. [facility], [address] [address], [place], [place], [id number], [place] tel:[phone] [facility] Bloody diarrhea 3 Ryder Martinez. [address] [facility] [facility] [address], [place], [place], [id number] , [place]. tel: [phone] Established Level 4 [facility], [address] [address], [place], [place], [address], [place] tel:[phone] [facility] GI Symptoms or Concerns (chief complaint) Bloody diarrhea 3 Ryder Martinez. [address] [facility], [facility] [address], [place], [place], [id number] , [place]. tel: [phone] Referring Provider: Referral Self, USE FOR SELF REFERRALS. [facility], [address] [address], [place], [place], [address], [place] tel:[phone] [facility] GI Symptoms or Concerns (chief complaint) Diarrhea, unspecifiedMel enaDiarrhea, unspecified 3 Ryder Martinez. [address] [facility], [place], [place], [id number] , [place]. tel: [phone] Referring Provider: Arsen ESTRELLA, [address] [place] [address] [address], [place], [address] . tel:[phone] New Level 4 [facility], [address] [address], [place], [place], [id number], [place] tel:[phone] [facility] GI Symptoms or Concerns (chief complaint) ColitisBloody diarrhea 3 Tona Leger. [address] [facility] [address], [place], [place], [id number] , [place]. tel:[phone] Referring Provider: Krystyna Phipps MD, [address] [place] [address], [address]. tel:[phone] [facility], [address] [address], [place], [place], [address], [place] tel:[phone] [facility] No Information 3 Tony Cardoso. [address] [facility] [address], [place], [place], [id number] , [place]. tel:[phone] Family History Family Member Type Diagnosis Age At Onset Brother Problem (finding) Alcoholism Brother Problem (finding) Gallbladder disease Mother Problem (finding) Alcoholism Mother Problem (finding) GERD Mother Problem (finding) Cancer, breast Brother Problem (finding) GERD Immunizations Vaccine Date Status Comments Afluria Qd administered Note: [facility] bi-directional interface ; Source: Other Registry SARS-COV-2 (COVID-19) vaccin e, mRNA, spike protein, LNP, bivalent booster, preservative free, 30 mcg/0.3 mL dose, shahzad-sucrose formulation administered Note: [facility] bi-d irectional interface ; Source: Other Registry SARS-COV-2 (COVID-19) vaccin e, mRNA, spike protein, LNP, preservative free, 100 mcg/0.5mL dose or 50 mcg/0.25mL dose administered Note: [facility] bi -directional interface ; Source: Other Registry [...] party ID Authoriza tion(s) [employer] CI [id number] Social History Type Description Quantity Date Captured [...] a 31-year-old female, who is referred to [facility] for evaluation of colitis, diarrhea and [...]
--- OUTSIDE RECORDS SUMMARY | 2024-12-20 18:58 | XMS_ITS | Clinical Summary ---
Author Organization [facility] Address [place], [place] [address] Care Team Providers Care Java Flex Developer Name Role Phone Desire Krystyna Mckinnon Primary [...] 12/26/2015 Overview (06/28/2015): Dr Paz / [facility] Need for hepatitis B vaccination 05/26/2015 11/26/2018 Encounters Date Type Department Care Team Description 2024 7:45 AM COKE OVEN PATCHER Telemedicine [facility] [address] [place] [address] Krystyna Phipps, Medication Management (effexor/) 12/01/2024 Travel from Last 3 Months Immunizations Name Administration Dates Next Due COVID-19 vaccine (Protein [employer] NTPre [employer] 30mcg/0.3mL) 12YO+ BIVALENT PF, MDV 09/19/2022 DTaP [...] on file Legal Sex Female 5:25 AM COKE OVEN PATCHER Gender Identity Not on file Sexual Orientation [...] CDT Respiratory Rate 14 12/31/2014 11:30 AM COKE OVEN PATCHER Oxygen Saturation 97% 01/29/2024 7:54 AM CDT Inhaled Oxygen Concentration - - Weight 62.6 kg (138 lb) 01/29/2024 7:54 AM CDT Height 160 cm (5' 3) 05/15/2023 1:04 PM CDT Body Mass Index 24.45 05/15/2023 1:04 PM CDT Plan of Treatment Upcoming Encounters Date Type Department Care Team (Late st Contact Info) Description 01/06/2025 11:30 AM COKE OVEN PATCHER Office Visit [facility] [address] [place] [address] Krystyna Phipps DO [address] [place] [address] Health Maintenance Due Date Last Done Comments [...] ANTI HIV 1/2 Routine 11/22/2017 8:50 AM COKE OVEN PATCHER Screen for STD (sexually transmitted disease) ANTI HCV Routine 11/22/2017 8:50 AM COKE OVEN PATCHER Screen for STD (sexually transmitted disease) from Last 3 Months or Most Recently Relevant to Health Maintenance Results * HPV HIGH RISK (03/09/2022 10:50 AM CDT) TYPE 16 Negative Negative 03/13/2022 2:07 PM CDT [facility] TYPE 18 Negative Negative 03/13/2022 2:07 PM CDT [facility] OTHER HIGH RISK TYPES Negative Negative 03/13/2022 2:07 PM CDT [facility] Other (Cervical) Non-Blood / Unknown 03/09/2022 10:50 AM CDT 03/12/2022 9:45 AM CDT Narrative [facility] - 03/13/2022 2:07 PM CDT HPV types 16, 18, 31, 33, 35, 39, 45, 51, 52, 56, 58, 59, 66 and 68 DNA were undetectable or below the pre-set threshold. Methodology: [address] 4800 HPV Test Krystyna Phipps DO MICROBIOLOGY Final Resul t [facility] [address] [place] [address], [place] * ANTI HCV (11/22/2017 8:50 AM COKE OVEN PATCHER) HEPATITIS C ANTIBODY Non-Reacti ve Non-Reacti ve 11/22/2017 2:20 PM COKE OVEN PATCHER [facility]AL [facility] Blood BLOOD SPECIMEN / Unknown Venipuncture / Unknown 11/22/2017 8:50 AM COKE OVEN PATCHER 11/22/2017 8:50 AM COKE OVEN PATCHER Narrative [facility] - 11/22/2017 2:20 PM COKE OVEN PATCHER Antibodies to HCV not detected; does not exclude the possibility of exposure to HCV. Krystyna Phipps DO SEND OUTS Final Resul t Performing Organization Address City/[facility]/ZIP Co de Phone Number [facility] [employer] [facility] [address] [place] [address], [place] * ANTI HIV 1/2 (11/22/2017 8:50 AM COKE OVEN PATCHER) HIV-1/HIV-2 ANTIBODY Non-Reacti ve Non-Reacti ve 11/22/2017 2:35 PM COKE OVEN PATCHER [facility] Blood BLOOD SPECIMEN / Unknown Venipuncture / Unknown 11/22/2017 8:50 AM COKE OVEN PATCHER 11/22/2017 8:50 AM COKE OVEN PATCHER Narrative [facility] - 11/22/2017 2:35 PM COKE OVEN PATCHER HIV-1 p24 and HIV-1/HIV-2 Ab not detected Krystyna Phipps DO SEND OUTS Final Resul t [facility] [employer] [facility] [address] [place] [address], [place] from Last 3 Months or Most Recently Relevant to Health Maintenance [facility] Care Teams Java Flex Developer Relationship Specialty Start Date End Date Krystyna Phipps DO [place] [address] PCP - General Family Practice 10/28/17
[2024-12-20] MEDS: 0.9 % SODIUM CHLORIDE 1000 ml 1,000 ML IV (19:21)
[2024-12-20 19:28] LABS: Basophils Absolute Auto 0.01 K/uL (0.00-0.30); Basophils Percent Auto 0.1 % (0.0-3.0); Eosinophils Absolute Auto 0.01 K/uL (0.00-0.50); Eosinophils Percent Auto 0.1 % (0.0-7.0); Hematocrit 40.5 % (33.0-51.0); Hemoglobin* 13.8 gm/dL (12.0-16.0); Immature Granulocytes Abs Auto 0.01 K/uL (0.00-0.30); Immature Granulocytes Pct Auto 0.1 %; Lymphocytes Percent Auto 39.9 % (20-44); Mean Corpuscular HGB Conc 34 gm/dL (32-36); Mean Corpuscular Hemoglobin 31 pg (26-34); Mean Corpuscular Volume 90 fL (80-100); Monocytes Percent Auto 10.7 % (0.0-11.0); Neutrophils Absolute Auto 3.81 K/uL (1.7-7.0); Neutrophils Percent Auto 49.1 % (42.0-72.0); Platelet Count* 213 K/uL (140-440); RDW Coefficient of Variation % 12.1 % (11.5-15.5); Red Blood Count 4.49 m/uL (4.00-5.20); White Blood Count* 7.77 K/uL (4.50-11.00)
[2024-12-20 19:30] LABS: Slide Review Reflex No
[2024-12-20 19:31] LABS: PCR FLU A Negative PCR FLU A (Negative); PCR FLU B Negative PCR FLU B (Negative); PCR RSV Negative PCR RSV (Negative); SARS PCR* POSITIVE SARS-CoV-2 (Negative)
[2024-12-20] MEDS: ONDANSETRON 2 MG/ML inj 4 MG IVP (19:32)
[2024-12-20 19:40] LABS: Chloride* 103 mmol/L (96-114); Potassium* 3.6 mmol/L (3.6-5.1); Sodium* 138 mmol/L (135-149)
[2024-12-20 19:43] LABS: Amylase* 63 U/L (18-89); Creatinine* 0.6 mg/dL (0.5-1.5); Est. Creatinine Clearance* 108.26; Estimated Glomerular Filt Rate 120 ml/min
[2024-12-20 19:44] LABS: Anion Gap 11 mEq/L (7-15); Blood Urea Nitrogen* 7 mg/dL (5-24); Calcium* 9.4 mg/dL (8.4-10.6); Carbon Dioxide* 24 mmol/L (20-32); Glucose* 106 mg/dL (60-115)
[2024-12-20 19:46] LABS: C Reactive Protein* 0.5 mg/dL (0.5-1.0)
== END 2024-12-20 20:27 | disposition home or self-care (01) ==
PROVIDERS: Emergency Provider Family Medicine; PCP Family Medicine
DX: R19.7 Diarrhea, unspecified (principal); U07.1 COVID-19
CPT/HCPCS: 36415; 80048; 82150; 85025; 86140; 87631; 96374; 99283; 99284; J2405; J7030